=== PATIENT | female | born 1940 | race Caucasian/White ===

== ENCOUNTER 2017-09-01 04:12 | Inpatient (IN) | payer MEDICARE ==
[2017-09-01] MEDS ORDERED: Acetaminophen 500 MG TAB ONE (04:50)
[2017-09-01] MEDS ORDERED: Promethazine HCl 25 MG/ML VIAL ONE (04:50)
[2017-09-01] MEDS ORDERED: diphenhydrAMINE 50 MG/ML VIAL ONE (04:50)
[2017-09-01 05:00] LABS: #Lymphocytes 1.1 thou/uL (1.20-3.40); #Monocytes 0.5 thou/uL (0.11-0.59); #Neutrophils 10.4 thou/uL (1.40-6.50); %Basophils 0.1 % (0.0-1.0); %Eosinophils 0.3 % (0.0-10.0); %Lymphocytes 9.1 % (21.0-51.0); %Monocytes 4.2 % (0.0-10.0); %Neutrophils 86.3 % (42.0-75.0); Hemoglobin 12.9 g/dL (12.0-16.0); Mean Corpuscular HGB CONC 33.1 g/dL (32.0-36.0); Mean Corpuscular Hemoglobin 28.6 pg (27.0-31.0); Mean Corpuscular Volume 86.3 fl (81.0-99.0); Mean Platelet Volume 6.6 fL (7.4-10.4); Platelet Count 218 thou/uL (130-400)
[2017-09-01 05:19] LABS: ALT (SGPT) 11 U/L (8-55); AST (SGOT) 10 U/L (5-34); Alkaline Phosphatase 121 U/L (40-150); Anion Gap 13 mmol/L (10-20); BUN (Urea Nitrogen) 9 mg/dL (9.8-20.1); Bilirubin, Total 0.7 mg/dL (0.2-1.2); Calc. Creatinine Clearance 0 mL/min (70-130); Calcium 9.3 mg/dL (7.8-10.44); Carbon Dioxide 25 mmol/L (23-31); Chloride 104 mmol/L (98-107); Estimated GFR-MDRD 74; Globulin 3.2 g/dL (2.4-3.5); Glucose 144 mg/dL (83-110); Protein, Total 7.2 g/dL (6.0-8.3); Sodium 138 mmol/L (136-145)
[2017-09-01] MEDS ORDERED: Morphine 4 MG/ML VIAL ONE (06:11)
[2017-09-01 06:23] LABS: Bilirubin Negative (Negative); Blood, Urine Negative (Negative); Clarity CLEAR (Clear); Glucose, Urine (Dipstick) Negative (Negative); Leukocyte Negative (Negative); Nitrite Negative (Negative); Protein, Urine (Dipstick) Negative (Neg-Trace); Specific Gravity, Urine 1.004 (1.002-1.036); Urobilinogen 0.2 mg/dL (0.2-1.0); pH, Urine 7.5 (5.0-9.0)
--- NOTE | 2017-09-01 07:40 | RAD ---
SINGLE VIEW CHEST: Date: 09/01/17 COMPARISON: 10/12/09. HISTORY: Cough with multiple complaints. Dry cough, fever, and sore throat. FINDINGS: Single view of the chest shows normal size cardiomediastinal silhouette with atherosclerotic calcific ations in the aorta. There is no evidence of consolidation, mass, or pleural effusion. Degenerative c hanges are seen in the spine. IMPRESSION: 1. No evidence of acute cardiopulmonary disease. 2. Atherosclerotic disease. POS: OFF
[2017-09-01] MEDS ORDERED: HYDROcodone/Acetaminophen 5/325 mg Tablet PO PRN ×2 (07:42)
[2017-09-01] MEDS ORDERED: Ondansetron ODT 4 MG TAB SL PRN (07:42)
[2017-09-01] MEDS ORDERED: Acetaminophen 325 MG TAB PO PRN (07:42)
[2017-09-01] MEDS ORDERED: Sodium Chloride 0.9% 1,000 ML IV SCH (07:42)
[2017-09-01] MEDS ORDERED: Ondansetron HCl/PF 4 MG/2 ML Vial IVP PRN ×2 (07:42→10:30)
[2017-09-01 07:49] VITALS: BMI 28.3
--- NOTE | 2017-09-01 08:35 | CT ---
PRELIMINARY REPORT/[facility]/EMERGENTY AFTER-HOURS PROCEDURE CT Head Without Intravenous Contrast EXAM DATE/TIME: Exam ordered 09/01/2017 6:05 AM CLINICAL HISTORY: 77 years old, female; Pain; Headache; Headache not specified; Patient HX: Headache; Er 1; F77 presents to ed for multiple complaints. Pt reports body aches, headache, sore throat, fever, dry cough, runny nose, nausea, and decreased appetite TECHNIQUE: Axial computed tomography images of the head/brain without intravenous contrast. COMPARISON: No relevant prior studies available. FINDINGS: Brain: Normal. No hemorrhage. No significant white matter disease. No edema. Ventricles: Normal. No ventriculomegaly. Bones/joints: Normal. No acute fracture. Soft tissues: Normal. Sinuses: Unremarkable as visualized. No acute sinusitis. Mastoid air cells: Unremarkable as visualized. No mastoid effusion. IMPRESSION: No acute intracranial hemorrhage. Thank you for allowing us to participate in the care of your patient. Dictated and Authenticated by: Israel Mancuso MD 09/01/2017 6:17 AM Central Time ([place] & [place]) FINAL REPORT EMERGENCY AFTER HOURS STUDY CT BRAIN NONCONTRAST: DATE: 09/01/17. TIME: 6:06 a.m. HISTORY: A 77-year-old female with headache. FINDINGS: There is no midline shift or any other mass effect. There is no evidence of acute intracranial hemor rhage, large cortical infarct, obstructive hydrocephalus, or extraaxial fluid collection. The calvar ium is intact. Incidentally, there is a small old lacunar infarction involving the left caudate nucl eus, which occurred sometime after the previous CT of 10/12/09. This is a minor disagreement with the preliminary report by [facility]. There is no major disagreement. Scattered tiny hypodensities in the c alvarium are unchanged since 10/12/09, and are therefore, benign. IMPRESSION: 1. No acute intracranial findings. 2. Small old lacunar infection of the left caudate nucleus. james POS: CHARLES
[2017-09-01] MEDS ORDERED: Acetaminophen 500 MG TAB PO PRN (10:30)
[2017-09-01] MEDS ORDERED: Chloraseptic Spray 180 ml Bottle PO PRN (10:30)
[2017-09-01] MEDS ORDERED: cloNIDine 0.1 MG TAB PO PRN (10:30)
[2017-09-01] MEDS ORDERED: hydrALAZINE 20 MG/ML VIAL SLOW IVP PRN (10:30)
[2017-09-01] MEDS ORDERED: Ondansetron ODT 4 MG TAB PO PRN (10:30)
[2017-09-01] MEDS: Ketorolac Tromethamine 30 MG/ML VIAL IVP SCH ×2 (12:38→17:18)
[2017-09-01] MEDS: Sodium Chloride 0.9% 1,000 ML IV SCH ×2 (12:39→17:21)
--- NOTE | 2017-09-01 12:54 | HP ---
DATE OF ADMISSION: 09/01/2017 PRIMARY CARE PHYSICIAN: Dr. Isaac Courtney. CHIEF COMPLAINT: Bodyaches and headache. HISTORY OF PRESENT ILLNESS: This is a 77-year-old female who presents to [facility] with multiple somatic complaints including headache, body aches, sore throat, subjective fever, nausea, and decreased appetite. The patient states all symptoms began within the last 12 hours prior to evaluation in the emergency room. The patient states she called to make an ap pointment with her primary care provider's office; however, felt like her symptoms progressed and pre sented to the emergency room. The patient states she took Nyquil for some relief at approximately 20 :00 on 08/31/2017 without relief of her symptoms. The patient denies any family members with similar symptoms, travel history, sick contact exposure, recent vaccinations, skin rashes or recent antibiot ic prescription. The patient states she normally is fairly active and does not typically get ill. [facility] patient admits to some sore throat with mild postnasal drainage and dry cough, diminished appetite and nausea. The patient denies any diarrhea, hematemesis, recent trauma, injury or falls. The rubén ent denied any specific visual disturbance, but does state throbbing headache behind both eyes. In [facility] emergency room, the patient underwent general evaluation to include CT of the brain showing no acu te process. Portable chest x-ray also showed no acute infiltrates. The patient received multiple me dications in the emergency room including Levaquin, morphine, Phenergan, Benadryl, normal saline and Tylenol. The patient was referred to the Hospitalist Service for evaluation. PAST MEDICAL HISTORY: 1. Hypertension. 2. Hyperlipidemia. PAST SURGICAL HISTORY: 1. Status post cataract removal. 2. Status post bilateral tubal ligation. CURRENT MEDICATIONS: 1. Carvedilol 6.25 mg p.o. b.i.d. 2. Lisinopril 10 mg one tab p.o. daily. 3. Simvastatin 40 mg p.o. at bedtime. ALLERGIES: PENICILLIN. FAMILY HISTORY: No inheritable diseases per patient report. SOCIAL HISTORY: Patient is and resides in [place], [place]. Retired. No current alcohol, to bacco or illicit drug use. Functional of all activities of daily living. REVIEW OF SYSTEMS: The following complete review of systems was negative, unless otherwise mentioned in the HPI or below: Constitutional: Weight loss or gain, ability to conduct usual activities. Skin: Rash, itching. Eyes: Double vision, pain. ENT/Mouth: Nose bleeding, neck stiffness, pain, tenderness. Cardiovascular: Palpitations, dyspnea on exertion, orthopnea. Respiratory: Shortness of breath, wheezing, cough, hemoptysis, fever or night sweats. Gastrointestinal: Poor appetite, abdominal pain, heartburn, nausea, vomiting, constipation, or diarr hea. Genitourinary: Urgency, frequency, dysuria, nocturia. Musculoskeletal: Pain, swelling. Neurologic/Psychiatric: Anxiety, depression. Allergy/Immunologic: Skin rash, bleeding tendency. Otherwise negative except as stated per HPI. PHYSICAL EXAMINATION: VITAL SIGNS: Currently, blood pressure 151/74, pulse 89, respiratory rate 18, temperature 97.6 degre es Fahrenheit, O2 saturation is 96% on room air. GENERAL APPEARANCE: This is a 77-year-old female, alert and oriented x3, pleasant, in no a cute distress. HEENT: Pupils are equal, round, and reactive to light and accommodation. Extraocular muscles are in tact. No scleral icterus, no conjunctival injection. Nares patent. OP is clear. No tonsillar exud ate appreciated. NECK: Supple, no cervical adenopathy, no thyromegaly, no carotid bruits, no JVD appreciated. Cervic al spine is with full active and passive range of motion. No meningeal signs appreciated. CHEST: Lungs are clear to auscultation bilaterally. No wheezing or rhonchi. CARDIOVASCULAR: S1 and S2 without noted murmur or gallop. ABDOMEN: Rounded, soft, nontender, nondistended. Bowel sounds are positive in all four quadrants. There is no hepatosplenomegaly, no abdominal bruits, no rebound or guarding appreciated. EXTREMITIES: Warm and dry with fair turgor. No clubbing, cyanosis or asymmetric edema appreciated. Pulses palpable distally at the dorsalis pedis, posterior tibial, and popliteal arteries bilaterally . Capillary refill is less than 2 seconds. NEUROLOGIC: Cranial nerves II-XII are grossly intact. No focal or lateralizing signs appreciated. PERTINENT LABORATORY DATA AND IMAGING DATA: Complete metabolic profile within normal limits. CBC sh owed white blood cell count of 12.0, hemoglobin 13, hematocrit 39, platelet count 218 with 86% neutro phils. Urinalysis negative on 09/01/2017. Influenza A and B antigen on 09/01/[address] of the brain without contrast dated 09/01/2017 showed no acute intracranial process. Portable chest x-r ay dated 09/01/2017 showed no acute cardiopulmonary process. EKG dated 09/01/2017 by my interpretati on shows sinus mechanism with heart rate in the 80s. Normal R-wave progression noted in the precordi al leads. Normal axis. No acute ST-T wave changes appreciated. ASSESSMENT AND PLAN: 1. Viral syndrome. The patient will be observed on the medical floor. We will continue supportive measures. Intravenous normal saline at 75 mL per hour. Toradol 30 mg IV every 6 hours p.r.n. 2. Headache. Suspect secondarily to #1 with tension type components. Continue IV fluids as outline d previously. Toradol 30 mg IV q.6 hours p.r.n., Tylenol 1000 mg p.o. every 6 hours p.r.n. 3. Neutrophilic leukocytosis. Suspect secondary to #1. Repeat CBC in the a.m. Continue general odom pportive measures. 4. Hypertension. Resume home regimen to include carvedilol and lisinopril. Serial blood pressure m onitoring. 5. Prophylaxis. Sequential compression devices while in bed. Pepcid 20 mg p.o. b.i.d. 6. Code status is FULL. Surrogate medical decision maker is patient's spouse.
[2017-09-01] MEDS: Carvedilol 6.25 MG TAB PO SCH (21:49)
[2017-09-01] MEDS: Famotidine 20 MG TAB PO SCH (21:49)
[2017-09-02] MEDS: Ketorolac Tromethamine 30 MG/ML VIAL IVP SCH ×3 (00:08→13:01)
[2017-09-02 05:37] LABS: Band 1 % (5-11); Eosinophils 2 % (0-10); Hemoglobin 10.7 g/dL (12.0-16.0); Lymphocytes 33 % (21-51); MDiff Complete? YES; Mean Corpuscular HGB CONC 32.9 g/dL (32.0-36.0); Mean Corpuscular Volume 88.1 fl (81.0-99.0); Mean Platelet Volume 7.3 fL (7.4-10.4); Monocytes 5 % (0-10); Neutrophil 59 % (42-75); PLT Morphology Comment Appears Adequate; Platelet Count 182 thou/uL (130-400); RBC Distribution Width 12.1 % (11.5-14.5)
[2017-09-02] MEDS: Carvedilol 6.25 MG TAB PO SCH (08:14)
[2017-09-02] MEDS: Famotidine 20 MG TAB PO SCH (08:14)
[2017-09-02] MEDS: Sodium Chloride 0.9% 1,000 ML IV SCH (08:16)
[2017-09-02] MEDS ORDERED: Lisinopril 10 MG TAB PO SCH (09:00)
[2017-09-02 11:29] VITALS: BP 112/59; TEMP 98.5
--- NOTE | 2017-09-02 16:29 | PDOC.EVN ---
Event Note - Event Note Event Note: LATE ENTRY The patient's chart was reviewed on 09/01/2017 for the purposes of Utilization review. The patient's acuity of care does not meet the level of In-patient status. Therefore under the Medicare Provision Code 44, the patient's status was changed to Observation The patient's Attending Physician was contacted and agreed.
--- NOTE | 2017-09-02 20:42 | DIS ---
DATE OF ADMISSION: 09/01/2017 DATE OF DISCHARGE: 09/02/2017 DISCHARGE DIAGNOSES: 1. Viral syndrome, improved. 2. Headache secondary to #1, improved. 3. Neutrophilic leukocytosis, resolved. 4. Hypertension, stable. CONSULTATIONS: None. PERTINENT LABORATORY DATA AND X-RAY FINDINGS: Complete metabolic profile within normal limits. CBC showed a white blood cell count ranging between 8.0 to 12.0. Blood cultures x2 from 09/01/2017 showe d no growth to date. Influenza A and B antigen dated 09/01/[address] of the brain without c ontrast dated 09/01/2017 showed no acute intracranial process. Portable chest x-ray dated 09/01/2017 showed no acute cardiopulmonary process. HOSPITAL COURSE: Patient was observed on the medical floor after initially presenting with headache, body aches, and questionable fever. Patient underwent extensive evaluation including screening meta bolic survey as well as chest imaging showing no acute focal process. Patient was initially diagnose d with questionable pneumonia in the emergency department and received IV Levaquin x1 dose. Patient also received antiemetics and intravenous fluids. Review of the chest imaging showed no specific matt dence of acute infiltrate and radiologist overread showed no evidence of an acute infectious process. Patient was given general supportive measures including IV fluids, anti-inflammatory medication, an d supportive care. Patient overall remained clinically stable throughout the hospital course without evidence of documented fever. Metabolic screening was unremarkable, and patient clinically improved with supportive care. I have examined the patient at the time of discharge and discuss radiological findings, laboratory studies, discharge and follow up instructions. At which point, patient has burt balized understanding and agreement for discharge. Patient is overall stable and ready for discharge on 09/02/2017. DISCHARGE MEDICATIONS: 1. Carvedilol 6.25 mg p.o. b.i.d. 2. Lisinopril 10 mg p.o. daily. 3. Simvastatin 40 mg p.o. at bedtime. FOLLOWUP: Patient will follow up with Dr. Isaac Courtney within 7 days of discharge. CONDITION ON DISCHARGE: Stable. ACTIVITY: Ad-chantal. DIET: Regular. CODE STATUS: FULL. DISPOSITION: Home on 09/02/2017.
== END 2017-09-02 17:14 | disposition home or self-care (01) | DRG 866 ==
LOC: ERS 04:12 → T4-A 07:34
PROVIDERS: ADMIT Internal Medicine; ATTEND Internal Medicine
DX: B34.9 Viral infection, unspecified (principal); D72.0 Genetic anomalies of leukocytes; R51 Headache; I10 Essential (primary) hypertension; E78.5 Hyperlipidemia, unspecified
CPT/HCPCS: 36415; 70450; 71045; 80053; 81003; 85007; 85025; 85027; 87040; 87804; 93005; 96361; 96365; 96375; A4216; J1200; J1885; J1956; J2270; J2550

== ENCOUNTER 2017-09-04 09:32 | Inpatient (IN) | payer MEDICARE ==
[2017-09-04 12:50] LABS: Troponin I Less than 0.010 ng/mL (< 0.028)
[2017-09-04] MEDS ORDERED: Acetaminophen 325 MG TAB PO PRN (13:56)
[2017-09-04] MEDS ORDERED: HYDROcodone/Acetaminophen 7.5/325 mg Tablet PO PRN (13:56)
[2017-09-04] MEDS ORDERED: Ondansetron ODT 4 MG TAB PO PRN (13:56)
[2017-09-04] MEDS: Furosemide 40 MG/4 ML VIAL SLOW IVP SCH (14:39)
[2017-09-04 15:44] LABS: Troponin I Less than 0.010 ng/mL (< 0.028)
--- NOTE | 2017-09-04 15:45 | HP ---
DATE OF ADMISSION: 09/04/2017 CHIEF COMPLAINT: Shortness of breath. HISTORY OF PRESENT ILLNESS: This is a 77-year-old elderly white female. She is living by herself in [facility] and also taking care of her mentally retarded child at home and she is otherwise in good health. For the past few weeks, she is noticing that she is nauseated and she is not eating well and she is losing weight. She has noticed that she was also having some cough, congestion and shortness of breath which is progressively getting worse to the point today that she was not able to walk any few steps at home and she is feeling like chest discomfort with as if somebody sitting on her chest. She says she decided to go to a nearby ER at [place] and she had chest x-ray showing evidence of bi lateral pleural effusions and elevated BNP. The patient was diagnosed with CHF and was transferred t o [facility]. When patient arrived to the ER, she was hypoxic at 87%-88% and was started on nasal cannula and also added Lasix 40 mg. The patient had elevated BNP and also history of congestive hea rt failure. The patient has a history of hypertension which is according to her is well controlled, but otherwise is in good health. There are no other medical issues. The patient denies having any s ick contacts. Denies having any cough and cold. No history of any abdominal pain. No history of he adache, no history of dizziness. No history of joint pains. PAST MEDICAL HISTORY: Hypertension. PAST SURGICAL HISTORY: None. SOCIAL HISTORY: Patient is a not a nonsmoker. No history of alcohol, no history of illicit drug use . She lives independently, takes care of her son. FAMILY HISTORY: No significant family history of coronary artery disease, but her mother did had his tory of CHF and at the age of 80. REVIEW OF SYSTEMS: All 12 systems are reviewed with the patient thoroughly and found to be negative at this time. The following complete review of systems was negative, unless otherwise mentioned in the HPI or below : Constitutional: Weight loss or gain, sense of well-being, ability to conduct usual activities, exerc ise tolerance. Skin/Breast: Rash, itching, changes in hair growth or loss, nail changes, breast lumps, tenderness, swelling, nipple discharge. Eyes: Vision, double vision, tearing, blind spots, pain. ENT/Mouth: Headaches (location, time of onset, duration, precipitating factors), vertigo, lightheade dness, injury. Vision, double vision, tearing, blind spots, pain, nose bleeding, colds, obstruction, discharge, dental difficulties, gingival bleeding, dentures, neck stiffness, pain, tenderness, masses in thyroid or other areas Cardiovascular: Precordial pain, substernal distress, palpitations, syncope, dyspnea on exertion, or thopnea, nocturnal paroxysmal dyspnea, edema, cyanosis, hypertension, heart murmurs, varicosities, ph lebitis, claudication. Respiratory: Pain, shortness of breath, wheezing, stridor, cough, hemoptysis, fever or night sweats Gastrointestinal: Poor appetite, dysphagia, indigestion, abdominal pain, heartburn, eructation, naus ea, vomiting, hematemesis, jaundice, constipation, or diarrhea, abnormal stools (demundo-colored, tarry, bloody, greasy, foul smelling), flatulence, hemorrhoids, recent changes in bowel habits. Genitourinary: Urgency, frequency, dysuria, nocturia, hematuria, polyuria, oliguria, unusual (or larry nge in) color of urine, stones, hesitancy, change in size of stream, dribbling, acute retention or in continence, libido, potency. Musculoskeletal: Pain, swelling, redness or heat of muscles or joints, limitation, of motion, muscul ar weakness, atrophy, cramps. Neurologic/Psychiatric: Convulsions, paralyses, tremor, incoordination, paraesthesias, difficulties with memory of speech, sensory or motor disturbances, or muscular coordination (ataxia, tremor), emot ional problems, anxiety, depression, previous psychiatric care, unusual perceptions, hallucinations. Allergy/Immunologic: Skin rash, anemia, bleeding tendency, polydipsia, polyuria, intolerance to heat or cold. ALLERGIES: PENICILLIN allergy. HOME MEDICATIONS: Coreg 6.25 mg p.o. b.i.d., lisinopril 10 mg p.o. daily, and simvastatin 40 mg p.o. daily. PHYSICAL EXAMINATION: VITAL SIGNS: Blood pressure 187/86, heart rate of 74, respiratory rate 16, saturation 98%. GENERAL: The patient is moderately built and moderately nourished. She does not appear to be in acu te distress at this time. She is alert and oriented x3. HEENT: Atraumatic, normocephalic. PERRLA. Extraocular movements were intact. Oral mucosa is pink and moist. CARDIOVASCULAR: S1, S2 normal. No murmurs, no rubs or gallops. LUNGS: Bilateral air entry was equal. No wheezing, no crackles. ABDOMEN: Soft and nontender. No guarding or rebound tenderness. Normal bowel sounds are normal. MUSCULOSKELETAL: No calf tenderness. No pedal edema. No joint tenderness. No joint swelling. SKIN: No cyanosis, no erythema, no rash, no pallor. NEUROLOGIC: Cranial nerve examination II-XII intact. No focal deficits are noted. PSYCHIATRIC: No signs of suicidal ideation. No signs of alex. No signs of agitation. NECK: No thyromegaly, no JVD or lymphadenopathy was noted. LABORATORY DATA: WBC 9.6, hemoglobin 11.2, hematocrit 32.4, platelets is 229, sodium 139, potassium 3.7, chloride 105, bicarbonate is 23, BUN 10, creatinine 0.6, blood sugar 120. AST normal, ALT gui l, troponin 0.010. BNP 388. UA showed no evidence of UTI at this time. ASSESSMENT AND PLAN: 1. Acute congestive heart failure. 2. Acute chest pain, rule out coronary artery disease. 3. Hypertension poorly controlled. 4. Anemia of chronic disease. 5. Anemia, likely iron deficiency. PLAN: 1. Plan is to start the patient on Lasix. We will continue with 40 mg IV b.i.d. and we will closely monitor and repeat the BNP in the morning. I will do 2D echo to look for any evidence of wall motio n abnormality or any evidence of low ejection fraction. Low ejection fraction contributing to her sy mptoms of satiety, nausea and weight loss. 2. We will continue this patient on TONG inhibitor and add spironolactone. We will optimize blood p ressures to keep the blood pressure less than 135/85. 3. The patient mentioned about chest tightness, heaviness and exertional dyspnea. Need to rule out any evidence of coronary artery disease. We will do a nuclear stress test on Tuesday once her symptom s are resolved. 4. We will consult Cardiology if needed during the time. 5. Patient has anemia likely from poor nutrition. Will check the iron levels at this time. 6. DVT prophylaxis with Lovenox 40 mg subcu daily.
[2017-09-04] MEDS: Carvedilol 3.125 MG TAB PO SCH (16:42)
[2017-09-04 18:42] LABS: Troponin I Less than 0.010 ng/mL (< 0.028)
[2017-09-04] MEDS ORDERED: Potassium Chloride 20 MEQ TAB PO SCH (18:45)
[2017-09-04] MEDS ORDERED: Spironolactone 25 MG TAB PO SCH (19:00)
[2017-09-04] MEDS: Atorvastatin Calcium 20 MG TAB PO SCH (21:13)
[2017-09-04] MEDS: Docusate 100 MG CAP PO SCH (21:13)
--- NOTE | 2017-09-04 21:22 | CON ---
DATE OF CONSULTATION: 09/04/2017 REASON FOR CONSULTATION: Shortness of breath; found to have diastolic congestive heart failure, newl y diagnosed. HISTORY OF PRESENT ILLNESS: Ms. Valerio is a very pleasant 77-year-old woman. She went to the emerge ncy room complaining of shortness of breath. She said for at least several weeks if not longer, she has been short of breath and could not lay down flat. Her breathing got a lot worse and it felt like even there was a pressure in her chest. She went to the emergency room in [place]. She was found to be in congestive heart failure. She was given furosemide. She was hypoxic. Her oxygen level was 87% to 88%, but she had excellent response to the Lasix and she began feeling better. The tightness in her chest resolved and feels much better presently. No chest pain or pressure currently. Chest x-ray also showed some bilateral pleural effusions and elevated BNP. PAST MEDICAL HISTORY: Hypertension. PAST SURGICAL HISTORY: None. SOCIAL HISTORY: Nonsmoker. No alcohol. FAMILY HISTORY: No coronary disease at a young age. Mother of heart failure at age 80. REVIEW OF SYSTEMS: Constitutional: No significant weight gain or loss. Vision: No changes. Heari ng: No changes. Pulmonary: Positive for shortness of breath. Cardiac: Positive for shortness of breath and chest pressure, resolved with Lasix. Abdomen: Soft, nontender. Gastrointestinal: No na usea, vomiting, diarrhea. Skin: No rashes. PHYSICAL EXAMINATION: GENERAL: She is a delightful elderly woman. VITAL SIGNS: Her blood pressure is still high at 168/77; pulse 74, it is regular. EYES: Sclerae are nonicteric. Mouth, mucous membranes moist. NECK: Supple. No lymphadenopathy. LUNGS: Currently, clear. No wheezing, rales, or rhonchi. CARDIOVASCULAR: Normal S1, normal S2. There is no murmur, rub, or gallop. ABDOMEN: Soft, nontender. EXTREMITIES: No clubbing, no cyanosis, no edema. Peripheral pulses got strong, posterior tibial and dorsalis pedis pulses bilaterally. PERTINENT LABORATORY AND X-RAY FINDINGS: Hemoglobin was 11.2. Potassium was 3.7 this morning. Echocardiogram shows she has normal left ventricular function with some left ventricular hypertrophy, concentric; also some diastolic dysfunction. EKG, there were no acute changes. Initially, she had sinus rhythm, rate of 93 with otherwise normal EKG. ASSESSMENT: 1. Diastolic congestive heart failure, acute, probably on chronic. 2. History of hypertension. PLAN: 1. Agree with spironolactone. 2. Agree with TONG inhibitors. 3. We will replete potassium. 4. Discussed cardiac catheterization. She prefers not to do that. We will start with stress testin g and if it is completely normal, then may well be able to avoid the cardiac catheterization. Kush mead, doing well. Oxygen saturations are now 100% on room air.
[2017-09-04] MEDS ORDERED: Temazepam 15 MG CAP PO SCH (23:15)
[2017-09-05 05:13] LABS: #Eosinphils 0.2 thou/uL (0.0-0.7); #Lymphocytes 1.9 thou/uL (1.20-3.40); #Monocytes 0.7 thou/uL (0.11-0.59); #Neutrophils 4.3 thou/uL (1.40-6.50); %Basophils 0.7 % (0.0-1.0); %Eosinophils 3.2 % (0.0-10.0); %Lymphocytes 26.3 % (21.0-51.0); %Monocytes 9.8 % (0.0-10.0); %Neutrophils 60.1 % (42.0-75.0); Hemoglobin 12.1 g/dL (12.0-16.0); Mean Corpuscular HGB CONC 34.4 g/dL (32.0-36.0); Mean Corpuscular Hemoglobin 29.5 pg (27.0-31.0); Mean Corpuscular Volume 85.9 fl (81.0-99.0); Mean Platelet Volume 6.5 fL (7.4-10.4); Platelet Count 244 thou/uL (130-400); RBC Distribution Width 11.8 % (11.5-14.5); White Blood Cell (WBC) Count 7.2 thou/uL (4.8-10.8)
[2017-09-05] MEDS: Furosemide 40 MG/4 ML VIAL SLOW IVP SCH ×2 (05:21→16:32)
[2017-09-05 05:28] LABS: Anion Gap 12 mmol/L (10-20); BUN (Urea Nitrogen) 12 mg/dL (9.8-20.1); Calc. Creatinine Clearance 76 mL/min (70-130); Calcium 9.7 mg/dL (7.8-10.44); Carbon Dioxide 30 mmol/L (23-31); Chloride 100 mmol/L (98-107); Estimated GFR-MDRD 81; Glucose 105 mg/dL (83-110); Iron 32 ug/dL (50-170); Iron 34 ug/dL (50-170); Iron Binding Capacity, Total 234 mcg/dL (265-497); Potassium 3.5 mmol/L (3.5-5.1); Sodium 138 mmol/L (136-145)
--- NOTE | 2017-09-05 08:16 | RAD ---
UPRIGHT PORTABLE CHEST: HISTORY: A 77-year-old female with a history of congestive heart failure. FINDINGS: Increased markings in the left base, but this appears stable from prior studies dating back to 09/01. No confluent pneumonia, overt edema, or pleural effusion or other acute process. IMPRESSION: Stable increased markings, particularly in the left base. POS: OFF
[2017-09-05] MEDS ORDERED: Lisinopril 2.5 MG TAB PO SCH ×2 (09:00)
[2017-09-05] MEDS ORDERED: Aspirin 325 MG TAB PO SCH ×2 (09:00)
[2017-09-05 09:02] VITALS: BMI 27.8
[2017-09-05] MEDS ORDERED: ADENOSINE 60 MG/20 ML VIAL ONE (09:50)
--- NOTE | 2017-09-05 11:20 | PDOC.PN ---
- Subjective Encounter Start Date: 09/05/17 Encounter Start Time: 09:45 Subjective: no chest pain or sob -: is waiting for stress test - Objective Resuscitation Status: Resuscitation Status FULL:Full Resuscitation MAR Reviewed: Yes Vital Signs & Weight: Vital Signs (12 hours) Temp Pulse Resp BP Pulse Ox 09/05/17 04:00 98.1 F 74 18 158/74 H 93 L 09/05/17 00:00 97.6 F Weight Admit Weight 154 lb 4.8 oz Weight 156 lb 12.8 oz I&O: 09/04/17 09/05/17 09/06/17 06:59 06:59 06:59 Intake Total 440 Output Total 1900 Balance -1460 Result Diagrams: 09/05/17 04:55 09/05/17 04:55 Phys Exam - Physical Examination HEENT: PERRLA, moist MMs Neck: no JVD, supple Respiratory: no wheezing, no rales Cardiovascular: RRR, no significant murmur Gastrointestinal: soft, non-tender, positive bowel sounds Musculoskeletal: no edema, pulses present Neurological: non-focal, moves all 4 limbs Psychiatric: A&O x 3 Dx/Plan (1) Acute exacerbation of CHF (congestive heart failure) Code(s): I50.9 - HEART FAILURE, UNSPECIFIED Status: Acute Qualifiers: Heart failure type: diastolic Qualified Code(s): I50.33 - Acute on chronic diastolic (congestive) heart failure Comment: ef of 55% (2) HTN (hypertension) Code(s): I10 - ESSENTIAL (PRIMARY) HYPERTENSION Status: Chronic Qualifiers: Hypertension type: essential hypertension Qualified Code(s): I10 - Essential (primary) hypertension (3) Dyslipidemia Code(s): E78.5 - HYPERLIPIDEMIA, UNSPECIFIED Status: Chronic (4) Chest pain Code(s): R07.9 - CHEST PAIN, UNSPECIFIED Status: Acute Qualifiers: Chest pain type: unspecified Qualified Code(s): R07.9 - Chest pain, unspecified - Plan await stress test results -: had temp of 100 last night?, cxr no infiltrate, will get UA -: is on asp, lipitor, coreg and gentle diuresis with iv lasix q12h -: may switch to oral lasix qd if ok with cardio -: to amb as tolerated * . Review of Systems - Medications/Allergies Allergies/Adverse Reactions: Allergies Allergy/AdvReac Type Severity Reaction Status Date / Time Penicillins Allergy Rash Verified 09/01/17 07:43 Medications: Current Medications Acetaminophen (Tylenol) 650 mg PO Q4H PRN PRN Reason: Headache/Fever or Pain Last Admin: 09/04/17 21:20 Dose: 650 mg Hydrocodone Bitart/Acetaminophen ([place] 7.5/325) 1 tab PO Q4H PRN PRN Reason: Moderate Pain (4-6) Aspirin (Aspirin Chewable) 81 mg PO DAILY [facility] Atorvastatin Calcium (Lipitor) 20 mg PO HS [facility] Last Admin: 09/04/17 21:13 Dose: 20 mg [facility] ([facility] Last Admin: 09/04/17 16:42 Dose: 3.125 mg Docusate Sodium (Colace) 100 mg PO BID [facility] Last Admin: 09/04/17 21:13 Dose: 100 mg Enoxaparin Sodium (Lovenox) 40 mg SC 0900 [facility] Famotidine (Pepcid) 20 mg PO DAILY [facility] Furosemide (Lasix) 40 mg SLOW IVP 0600,1400 [facility] Last Admin: 09/05/17 05:21 Dose: 40 mg Lisinopril (Zestril) 10 mg PO DAILY [facility] Ondansetron HCl (Zofran Odt) 4 mg PO Q6H PRN PRN Reason: Nausea/Vomiting Sodium Chloride (Flush - Normal Saline) 10 ml IVF Q12HR [facility] Last Admin: 09/04/17 21:13 Dose: 10 ml Sodium Chloride (Flush - Normal Saline) 10 ml IVF PRN PRN PRN Reason: Saline Flush Spironolactone (Aldactone) 25 mg PO QAM[facility]
[2017-09-05] MEDS: Enoxaparin Sodium 40 MG/0.4 ML SYRINGE SC SCH (11:23)
[2017-09-05] MEDS: Docusate 100 MG CAP PO SCH ×2 (11:24→22:04)
[2017-09-05] MEDS: Famotidine 20 MG TAB PO SCH (11:24)
[2017-09-05] MEDS: Spironolactone 25 MG TAB PO SCH (11:25)
[2017-09-05] MEDS: Carvedilol 3.125 MG TAB PO SCH ×2 (11:25→16:36)
--- NOTE | 2017-09-05 13:05 | NM ---
MYOCARDIAL PERFUSION STUDY: DATE: 09/05/17. HISTORY: Chest heaviness. Chest pain. RADIOPHARMACEUTICALS: 33 mCi Technetium 99m sestamibi, IV at stress, and 10.5 mCi Technetium 99m sestamibi, IV at rest. MEDICATIONS: 39.2 mg (13.1 mL) adenosine, IV. FINDINGS: No significant reversible defect is seen between the stress and resting acquisitions. Gated images s how normal ventricular wall motion and wall thickening. The calculated left ventricular ejection fra ction is 87%. IMPRESSION: 1. Normal myocardial perfusion study without evidence of a reversible defect seen to suggest ischemi a. 2. Normal left ventricular ejection fraction of 87%. POS: XIOMARA
[2017-09-05] MEDS ORDERED: Lisinopril 10 MG TAB PO SCH (15:00)
--- NOTE | 2017-09-05 18:06 | PRG ---
DATE OF SERVICE: 09/05/2017 SUBJECTIVE: Ms. Valerio is doing well. She underwent stress testing today, which was normal. OBJECTIVE: VITAL SIGNS: Her blood pressure was earlier 159/72 then 130/63, pulse 78. LUNGS: Clear. CARDIAC: Normal S1, normal S2. ABDOMEN: Soft, nontender. EXTREMITIES: No edema. ASSESSMENT: 1. Diastolic congestive heart failure, improved. BNP actually went from 388 to 109.8 in one day. 2. Stress induced ischemia with normal ejection fraction on nuclear scanning. The patient does not wish to have cardiac catheterization. PLAN: 1. Okay with me to go home tomorrow. 2. She is currently on atorvastatin 20 mg a day, aspirin 81 mg a day, furosemide 40 mg each morning, lisinopril 10 mg a day. 3. Spironolactone 25 mg a day, potassium level should be checked within 2 weeks.
[2017-09-05] MEDS: Atorvastatin Calcium 20 MG TAB PO SCH (22:05)
[2017-09-06 05:33] LABS: Anion Gap 9 mmol/L (10-20); BUN (Urea Nitrogen) 19 mg/dL (9.8-20.1); Calc. Creatinine Clearance 74 mL/min (70-130); Calcium 9.4 mg/dL (7.8-10.44); Carbon Dioxide 32 mmol/L (23-31); Chloride 100 mmol/L (98-107); Estimated GFR-MDRD 78; Glucose 114 mg/dL (83-110); Potassium 3.5 mmol/L (3.5-5.1); Sodium 137 mmol/L (136-145)
[2017-09-06] MEDS ORDERED: Furosemide 40 MG TAB PO SCH (07:30)
[2017-09-06] MEDS: Spironolactone 25 MG TAB PO SCH (08:09)
[2017-09-06] MEDS: Carvedilol 3.125 MG TAB PO SCH (08:09)
[2017-09-06] MEDS: Famotidine 20 MG TAB PO SCH (08:09)
[2017-09-06] MEDS: Enoxaparin Sodium 40 MG/0.4 ML SYRINGE SC SCH (08:10)
[2017-09-06] MEDS ORDERED: Lisinopril 10 MG TAB PO SCH ×3 (09:00→11:00)
[2017-09-06] MEDS ORDERED: Carvedilol 3.125 MG TAB PO SCH ×2 (09:12→11:00)
[2017-09-06] MEDS ORDERED: Lisinopril 20 MG TAB PO SCH (10:00)
[2017-09-06] MEDS ORDERED: Carvedilol 6.25 MG TAB PO SCH ×2 (10:00→17:00)
[2017-09-06] MEDS: Docusate 100 MG CAP PO SCH (10:08)
--- NOTE | 2017-09-06 10:58 | PDOC.PN ---
- Subjective Encounter Start Date: 09/06/17 Encounter Start Time: 08:00 Subjective: no sob or palp or chest pain -: is amb and feels good - Objective Resuscitation Status: Resuscitation Status FULL:Full Resuscitation MAR Reviewed: Yes Vital Signs & Weight: Vital Signs (12 hours) Temp Pulse Resp BP BP Pulse Ox 09/06/17 08:09 131/63 09/06/17 08:03 98.8 F 76 14 138/69 95 09/06/17 04:00 98.2 F 74 16 140/65 94 L Weight Admit Weight 154 lb 4.8 oz Weight 154 lb 8 oz I&O: 09/05/17 09/06/17 09/07/17 06:59 06:59 06:59 Intake Total 440 1200 100 Output Total 1900 1300 350 Balance -1460 -100 -250 Result Diagrams: 09/05/17 04:55 09/06/17 04:48 Phys Exam - Physical Examination HEENT: PERRLA, moist MMs Neck: no JVD, supple Respiratory: no wheezing, no rales Cardiovascular: RRR, no significant murmur Gastrointestinal: soft, non-tender, positive bowel sounds Musculoskeletal: no edema, pulses present Neurological: non-focal, moves all 4 limbs Psychiatric: normal affect, A&O x 3 Dx/Plan (1) Acute exacerbation of CHF (congestive heart failure) Code(s): I50.9 - HEART FAILURE, UNSPECIFIED Status: Resolved Qualifiers: Heart failure type: diastolic Qualified Code(s): I50.33 - Acute on chronic diastolic (congestive) heart failure Comment: ef of 55%, class B (2) HTN (hypertension) Code(s): I10 - ESSENTIAL (PRIMARY) HYPERTENSION Status: Chronic Qualifiers: Hypertension type: essential hypertension Qualified Code(s): I10 - Essential (primary) hypertension (3) Dyslipidemia Code(s): E78.5 - HYPERLIPIDEMIA, UNSPECIFIED Status: Chronic (4) Chest pain Code(s): R07.9 - CHEST PAIN, UNSPECIFIED Status: Acute Qualifiers: Chest pain type: unspecified Qualified Code(s): R07.9 - Chest pain, unspecified - Plan stress test was -ve -: has diuresed well -: is cleared for dc by -: dc pt home -: to continue asp, zocor, coreg, lasix * .
[2017-09-06 13:42] VITALS: BP 140/68; TEMP 98.6
--- NOTE | 2017-09-06 14:53 | DIS ---
DATE OF ADMISSION: 09/04/2017 DATE OF DISCHARGE: 09/06/2017 DISCHARGE DISPOSITION: To home. PRIMARY DISCHARGE DIAGNOSES: Chest pain which is noncardiac, acute congestive heart failure exacerba tion with diastolic dysfunction class C. SECONDARY DISCHARGE DIAGNOSES: Hypertension and dyslipidemia. PROCEDURES DONE DURING HOSPITALIZATION: Patient has had nuclear stress test done which showed no matt dence of reversible ischemia or fixed defect, EF was 87%. Echo with 2D Doppler showed an ejection fr action of 55%-60%. There was E/A flow reversal suggestive of diastolic dysfunction, mild concentric LVH was seen. Chest x-ray done showed pulmonary vascular congestion. No obvious lobar consolidation was seen. Hemoglobin and hematocrit 12 and 35, platelet count 244. Discharge BUN and creatinine is 19 and 0.7, serum iron level was 34, ferritin is 414, troponin x3 was negative. BNP on admission wa s 388.5. DISCHARGE MEDICATIONS: Aspirin 81 mg p.o. daily, Coreg 3.125 mg p.o. twice daily, Lasix 40 mg p.o. d aily, lisinopril 10 mg p.o. daily, simvastatin 40 mg p.o. q.p.m., spironolactone 25 mg p.o. q.a.m. ALLERGIES: PENICILLIN. INPATIENT CONSULT: Dr. Tejada for Cardiology. DISCHARGE PLAN: Patient to follow up with primary care physician in [address] [facility] BRIEF COURSE DURING HOSPITALIZATION: Patient initially got admitted on with complaints of chest pain and shortness of breath. She was found to have had elevated BNP and was hypoxic with saturatio ns of 87% on room air on arrival. The patient was gently diuresed during her stay here. Her ejectio n fraction was within normal limits and had diastolic dysfunction on the echo. The patient has had c onsultation with Dr. Tejada for Cardiology. She has had nuclear stress test done which showed no matt dence of reversible ischemia. Prior to discharge, she is ambulating and eating well. She is asympto matic at the time of discharge. She has been optimized on medications and needs to follow up with Dr Unique Tejada in 2-4 weeks. Please see a face to face documentation on [facility] for the day of discharge.
[2017-09-07] MEDS ORDERED: Lisinopril 10 MG TAB PO SCH (09:00)
== END 2017-09-06 13:45 | disposition home or self-care (01) | DRG 293 ==
LOC: ERS 09:32 → 2NO 13:37
PROVIDERS: ADMIT Family Medicine; ATTEND Family Medicine
DX: I11.0 Hypertensive heart disease with heart failure (principal); E87.5 Hyperkalemia; D50.9 Iron deficiency anemia, unspecified; R07.9 Chest pain, unspecified; I50.33 Acute on chronic diastolic (congestive) heart failure
CPT/HCPCS: 36415; 71045; 78452; 80048; 82728; 83540; 83550; 83880; 85025; 93005; 93017; 93306; 93798; A4216; A9500; G8978-GP-CJ; G8979-GP-CJ; G8980-GP-CJ; G8987-GO-CH; G8988-GO-CH; G8989-GO-CH; J0153; J1650; J1940

== ENCOUNTER 2018-02-01 08:51 | Observation (INO) | payer MEDICARE, OTHER ==
[2018-02-01] MEDS ORDERED: ISOVUE-370 76%-LOCM 1 ML ONE (10:12)
--- NOTE | 2018-02-01 10:24 | CT ---
CT ANGIOGRAM CHEST WITH CONTRAST: HISTORY: Chest pain. Elevated D-dimer. COMPARISON: Chest radiograph from the same day. TECHNIQUE: CT angiogram chest performed after the intravenous administration of contrast, with 3D rendering prov ided. FINDINGS: A 15 mm nodule in the left lobe of the thyroid. No proximal segmental pulmonary arterial filling def ect. No dilatation of the pulmonary trunk. No pericardial effusion. The aortic size is nonaneurysmal. The upper abdomen demonstrates hypodensities of the liver, less li alisa cyst, although incompletely evaluated. No mediastinal adenopathy. No focal confluent air space consolidation, pneumothorax, or effusion. T here is a focal area of round atelectasis in the lingula, most likely a nodule. There is a nodular density in the left breast, incompletely evaluated. IMPRESSION: 1. No proximal or segmental pulmonary arterial filling defect. 2. Likely focal area of round atelectasis in the lingula, most likely a nodule. Follow-up CT chest in three months is recommended. 3. Multiple nodules in the left breast. Recommend correlation with recent mammography. If there is none, a diagnostic left breast mammogram is recommended. CODE T POS: CHARLES
--- NOTE | 2018-02-01 10:42 | ULT ---
GALLBLADDER ULTRASOUND: HISTORY: Abdominal pain. COMPARISON: None. TECHNIQUE: Utilizing a Multi-Hertz transducer, sonographic imaging of the right upper quadrant was performed in the longitudinal and transverse planes. FINDINGS: The head of the pancreas has a normal echotexture. The remainder of the pancreas is obscured by ganesh l gas. The visualized IVC has a normal caliber. There is a mixed echotexture focus in the left hepatic lobe, measuring 1.1 x 0.8 x 1.3 cm. Otherwise , the hepatic parenchyma is unremarkable. The contour of the hepatic margin is maintained. The righ t hepatic lobe measures 15.4 cm. The main portal vein is patent. Appropriate directional flow. Common bile duct diameter is 0.5 cm. No sonographic evidence of cholelithiasis, gallbladder wall thickening, or pericholecystic fluid. Ne gative Max sign. The right kidney has cortical thinning. No hydronephrosis. The right kidney measures 4.6 x 4.7 x 9 cm. IMPRESSION: 1. No sonographic evidence of cholelithiasis or cholecystitis. 2. Complex echotexture lesion in the left hepatic lobe. Correlation made with CT angiogram chest, 0 02/01/2018, demonstrates a well circumscribed hypodense lesion with an attenuation coefficient of 19 H [place] units. A complex hepatic cyst is favored. POS: CHARLES
[2018-02-01 10:55] LABS: Troponin I Less than 0.010 ng/mL (< 0.028)
[2018-02-01] MEDS ORDERED: Ondansetron HCl/PF 4 MG/2 ML Vial IVP PRN ×3 (11:58→12:12)
[2018-02-01] MEDS ORDERED: Ondansetron ODT 4 MG TAB SL PRN (11:58)
[2018-02-01] MEDS ORDERED: Diabetic Tussin 200 MG/10 ML UDCUP PO PRN (12:12)
[2018-02-01] MEDS ORDERED: traMADol HCl 50 MG TAB PO PRN (12:12)
[2018-02-01] MEDS ORDERED: Calcium Carbonate 500 MG ChewTAB PO PRN (12:12)
[2018-02-01] MEDS ORDERED: cloNIDine 0.1 MG TAB PO PRN (12:12)
[2018-02-01] MEDS ORDERED: Loratadine 10 MG TAB PO PRN (12:12)
[2018-02-01] MEDS ORDERED: Mag-Al 1200 mg/1200 mg/30 ML UDCUP PO PRN (12:12)
[2018-02-01] MEDS ORDERED: Senokot 8.6 MG TAB PO PRN ×2 (12:12)
[2018-02-01] MEDS ORDERED: HYDROcodone/Acetaminophen 5/325 mg Tablet PO PRN (12:12)
[2018-02-01] MEDS ORDERED: Acetaminophen 325 MG TAB PO PRN (12:12)
[2018-02-01] MEDS ORDERED: Bisacodyl 5 MG TAB PO PRN ×2 (12:12)
[2018-02-01] MEDS ORDERED: Nitroglycerin 0.4 MG TAB (25 Tab Bottle) SL PRN (12:12)
[2018-02-01] MEDS ORDERED: Benzonatate 100 MG CAP PO PRN (12:12)
[2018-02-01] MEDS ORDERED: Lorazepam 1 MG TAB PO PRN (12:12)
[2018-02-01] MEDS ORDERED: hydrALAZINE 20 MG/ML VIAL SLOW IVP PRN (12:12)
[2018-02-01 13:46] VITALS: BMI 28.3
[2018-02-01] MEDS ORDERED: Lisinopril 10 MG TAB PO SCH (13:47)
[2018-02-01 13:58] LABS: Troponin I Less than 0.010 ng/mL (< 0.028)
[2018-02-01] MEDS ORDERED: Furosemide 40 MG TAB PO SCH (14:30)
--- NOTE | 2018-02-01 14:37 | HP ---
PRIMARY CARE PHYSICIAN: Dr. Isaac Courtney. CHIEF COMPLAINT: Shortness of breath and epigastric pain. HISTORY OF PRESENT ILLNESS: Ms. Valerio is a 77-year-old female with known history of hypertension an d chronic diastolic heart failure diagnosed in 08/2017, class C as well as dyslipidemia, presented to the emergency room with the above-mentioned complaint. History is mainly obtained by the patient he rself. Electronic medical records have been reviewed. She was last admitted to our facility in 08/2017 for similar symptoms, but more so of the chest disco mfort. At that time, she underwent transthoracic echocardiogram which showed flow reversal suggestiv e of diastolic dysfunction, but preserved EF. At that time, she also had a nuclear medicine stress t est which was unremarkable. She was seen by Cardiology, Dr. Tejada, who recommended a cardiac cathet erization at that time given her risk factors, but the patient declined at that time and was discharg ed home. She came back to the emergency room today with about 2 days complain of discomfort mainly located in her epigastrium and right upper quadrant. She also reports that she is getting easily winded for the last 3-4 days. Normally, she is very active and takes care of her son and has a ramp built up for h er son's wheelchair and she exercises up and down the ramp easily, but for the last few days, she is feeling more and more short of breath and also had some chest discomfort earlier today, but mainly it was radiated pain up from her stomach. Upon presentation to the emergency room, she was hemodynamically stable. Cardiac enzymes and EKG wer e unremarkable. Emergency room physician discussed the case with me and I recommended that he discus s this with the patient and Dr. Tejada as the patient would likely need cardiac catheterization and s he has declined in the past. After discussion, the patient agreed to stay and get it done if necessa ry and Dr. Tejada has instructed to bring her in for possible cardiac catheterization tomorrow. She is otherwise hemodynamically stable. She has undergone a CT angio in the emergency room for elevated D-dimer, which is unremarkable. Ther e is no pulmonary embolism or dissection at this time. She also had a right upper quadrant ultrasoun d done in the ER for complaints of right upper quadrant pain. This also is unremarkable. There is n o cholelithiasis, gallbladder wall thickening or pericholecystic fluid. Max sign is negative. CB D is non-dilated. She was given lisinopril in the emergency room. PAST MEDICAL HISTORY: 1. Chronic diastolic congestive heart failure. 2. Hypertension. 3. Dyslipidemia. PAST SURGICAL HISTORY: Cataract removal and bilateral tubal ligation. ALLERGIES: Include PENICILLIN. SOCIAL HISTORY: She is and lives in [place], [place]. She has no history of drug, tobacco or alcohol abuse. FAMILY HISTORY: No inheritable diseases per patient report. CURRENT MEDICATIONS: Aspirin 81 mg daily, Coreg 6.25 mg p.o. b.i.d., Aldactone 25 mg daily, Lasix 40 mg daily, lisinopril 10 mg daily, simvastatin 40 mg daily. REVIEW OF SYSTEMS: A 12-point review of systems is done and is negative except for those mentioned i n the history and physical. LABORATORY DATA AND IMAGING: CBC is unremarkable. D-dimer 0.70. Serum chemistries: Blood sugar 13 3, troponin less than 0.010. CK-MB 1.0. BNP 81. BUN of 11, creatinine 0.81. Chest x-ray by my rev iew has no evidence to suggest any pleural effusion, edema or infiltrate. CT angio is negative for p ulmonary embolism and aortic dissection. There are multiple nodules noticed in the left breast and a left breast mammogram is recommended as an outpatient. There is atelectasis noticed in the lingula. Abdominal ultrasound as per HPI, negative for cholelithiasis or cholecystitis. A 12-lead EKG by my review is nonspecific. No ST or T-wave changes, normal sinus rhythm. PHYSICAL EXAMINATION: VITAL SIGNS: Most recently, pulse of 66, blood pressure 149/65. Afebrile. GENERAL: No acute distress, awake, alert, oriented x3. She does appear somewhat anxious, but in no acute distress. HEENT: Mucous membrane is moist and pink. No oropharyngeal exudate or erythema. Head is normocepha lic, atraumatic. Pupils equal, reactive to light and accommodation. Extraocular movement intact. NECK: Supple without any lymphadenopathy, JVD or bruit. CHEST: Clear to auscultation without any wheezing, rales or rhonchi. CARDIOVASCULAR: Rate and rhythm is regular without any murmur, rubs or gallops. ABDOMEN: She is tender to palpation in the epigastric region and the periumbilical region. There is no rebound, guarding or rigidity. It is soft and nondistended. EXTREMITIES: Free of any cyanosis, clubbing, or edema. NEUROLOGIC: Nonfocal. SKIN: Free of any rashes or bruises. I feel warm and dry to touch. PSYCHIATRIC: Normal affect. ASSESSMENT AND PLAN: 1. Epigastric and chest discomfort and pain. The patient can possibly be having angina equivalent g iven that she is also getting easily winded. She can also be having gastritis associated with her da carlos aspirin use. She denies any daily use of ibuprofen, but did take 1 tablet yesterday only. At th is time, she will be admitted for cardiac workup as advised during her last hospitalization by Dr. Ericka kee. We will continue to trend serial cardiac enzyme and she will be on the tele monitoring. We wi ll resume her home medications including beta dominga, TONG inhibitor and statin. She is currently no t in any decompensated heart failure. We will also start her on proton pump inhibitor to help with g astritis pain. She has no evidence of choledocholithiasis or cholelithiasis. 2. Dyspnea on exertion, likely angina equivalent. Plan as above. She will be n.p.o. after midnight tonight and we will consult Cardiology. 3. Hypertension, currently controlled. Resume home medications as above. 4. Dyslipidemia. Restart statin. 5. History of chronic diastolic congestive heart failure, currently stable. Resume Lasix and Aldact one. Monitor potassium levels. 6. CODE STATUS: FULL CODE. Discussed with the patient. 7. Deep venous thrombosis and gastrointestinal prophylaxis. DISPOSITION: Ms. Valerio is currently being admitted for further workup of chest discomfort and will likely need a cardiac catheterization. She is currently under observation status, but this can be ch anged to inpatient if cardiac catheterization is advised are necessary.
[2018-02-01 17:21] LABS: Troponin I Less than 0.010 ng/mL (< 0.028)
[2018-02-01] MEDS: Carvedilol 6.25 MG TAB PO SCH (17:45)
[2018-02-01] MEDS: Famotidine 20 MG TAB PO SCH (20:52)
[2018-02-01] MEDS ORDERED: Atorvastatin Calcium 20 MG TAB PO SCH (21:00)
--- NOTE | 2018-02-01 22:32 | CON ---
DATE OF CONSULTATION: 02/01/2018 PRIMARY CARE DOCTOR: Isaac Courtney MD PRIMARY TOBACCO SPRAYER: Dr. Tejada. REFERRING DOCTOR: Dr. Montiel. REASON FOR CARDIOLOGY CONSULTATION: Cath was recommended by primary counselor marriage and family. HISTORY OF PRESENT ILLNESS: Ms. Valerio is a 77-year-old female with a significant history of hypertension, migraine, chronic diastolic congestive heart failure, vertigo, and hyperlipidemia. The patient experienced heaviness and tightness at the chest, at the upper midsternal area with short ness of breath since yesterday and top over that she started having nausea with dry heaves around 2:0 0 a.m. this morning and the patient's symptoms are getting worse. The patient decided to present to the emergency department at [facility] around 6:00 a.m. After she received 4 tablets of aspirin, nitro glycerin, and some kind of IV medication, she feel better and at this moment during the Cardiology co nsult, the patient denied any chest pain or tightness or shortness of breath at this moment. She was in the hospital on August for shortness of breath and she was diagnosed as chronic diastolic congesti ve heart failure. The patient has been seen by Dr. Tejada's office. Since she was discharged from [facility], she has continued to have a shortness of breath, dyspnea of exertion with mild movement or walk ing long distance. She had been watching her diet especially watching fluid and sodium intake since she was discharged in 08/2017. She also complained of cramping in the left neck, last episode was la st 3 to 4 weeks ago. At this moment, the patient denied any shortness of breath; heaviness, tightnes s, or discomfort in her chest; palpitation; fluttering or any other cardiac complaints. Last time, the patient was here in 08/2017. She was told whether the patient had to have cardiac cat heterization. However, after the patient's test was normal, she was told by Dr. Tejada that the rubén ent does not need acute cardiac catheterization and the patient's echocardiogram was done, last one w as at 08/2017 which shows EF of 55% to 60% suggestive of diastolic dysfunction, mild LVH, mild mitral valve regurgitation, trace aortic insufficiency, mild tricuspid regurgitation and normal pulmonary a rtery pressure. MEDICAL HISTORY: 1. Chronic diastolic heart failure. 2. Hypertension. 3. Migraine. 4. Vertigo. 5. Hyperlipidemia. PAST SURGICAL HISTORY: Left cataract surgery, tubal ligation. FAMILY HISTORY: The patient's mother due to the complications of congestive heart failure a t the age of 80. The patient's oldest son due to myocardial infarction at the age of 56. H owever, the patient born as a premature and through her life she has cardiac related problem and the patient had defibrillator placement. Other than that, she does not have any significant cardiac or d iabetes or hypertension or CVA related disease. SOCIAL HISTORY: The patient is . She lived with 2 sons. The patient denied any EtOH, tobacco, or illicit drug abuse. She drinks 2 cups of coffee and one glass of tea for lunch. ALLERGIES: She is allergic to PENICILLIN. MEDICATIONS: 1. Simvastatin 40 mg once a day. 2. Lisinopril 10 mg once a day. 3. Aspirin 81 mg once a day. 4. Lasix 40 mg once a day. 5. Spironolactone 25 mg once a day. 6. Carvedilol 6.25 twice a day. REVIEW OF SYSTEMS: Review of systems are negative, unless otherwise mentioned in the HPI or below. PHYSICAL EXAMINATION: VITAL SIGNS: Blood pressure 149/65 and pulse is 66. GENERAL: The patient is alert and oriented x4. No acute distress. HEAD: Normocephalic and atraumatic. EYES: Extraocular muscle movements are intact. ENT/MOUTH/NOSE: Oral mucosa are moist without lesion. RESPIRATORY: Clear to auscultation bilaterally. NECK: Supple. No JVD or normal range of motion. CARDIOVASCULAR: Regular rate and rhythm. There are normal S1 and S2. There are no S3 or S4. No si gnificant murmur, thrill, bruit, or rubs noted. Carotid pulses are present with bruits in the right neck, but not in left side. They have 2+ pulses in the bilateral lower extremities. There are trace to +1 edema in the lower extremities in her hand. ABDOMEN: Nontender or mass to palpate. Bowel sounds are present. MUSCULOSKELETAL: The patient able to move all extremities. The patient denies any claudication. SKIN: Warm and dry. No rash, bruise, or lesion noted. PSYCHIATRIC: Normal affect. LABORATORY DATA: WBC 8.6, hemoglobin 12.4, hematocrit 36.8, platelet 282. D-dimer 0.7. Sodium 138, potassium 3.8, BUN 11, creatinine 0.81, glucose 133. AST 9, ALT 10. CK-MB to 1.0. Troponins are n egative x2. Next, we will draw around 4 this afternoon. BNP 81. Cholesterol is 171, triglycerides 152, HDL 52, and LDL 84. IMAGING STUDIES: CT scan of the chest view was done due to the elevated D-dimer, which shows no basa l segmental pulmonary artery filling defect, no proximal segmental pulmonary artery filling defect, m ultiple nodules in the left breast. The patient's abdomen ultrasound was done due to complaint of th e abdominal pain, showing no significant evidence of cholelithiasis or cholecystitis and also complex hepatic cyst is favored. ASSESSMENT AND PLAN: 1. Chest pain. The patient's 12-lead EKG and a troponin level is stable with no acute or chronic ab normality. At this moment, the patient will have vital signs stable and the patient's last stress te st in 08/2017 shows normal function without any cardiac ischemia noted. I would like to defer the de cision whether the patient needs further cardiac workup to Dr. Tejada. 2. Hypertension. The patient's blood pressure is stable at this moment. 3. Chronic diastolic congestive heart failure. The patient's condition is stable with room air. We would like to continue to monitor the blood pressure. 4. Hyperlipidemia. She is on the statin once a day. 5. Neck pain on the right side. The patient's condition is stable at this moment. We would like to continue to monitor. 6. Hyperlipidemia. The patient is on the statin at this moment. Thank you very much for Cardiology service to participate in the care of this patient. We will follo w along the patient's care team and make further recommendation as appropriate.
[2018-02-02 05:21] LABS: #Eosinphils 0.1 thou/uL (0.0-0.7); #Lymphocytes 1.8 thou/uL (1.20-3.40); #Monocytes 0.6 thou/uL (0.11-0.59); #Neutrophils 3.2 thou/uL (1.40-6.50); %Basophils 0.7 % (0.0-1.0); %Eosinophils 1.9 % (0.0-10.0); %Lymphocytes 31.3 % (21.0-51.0); %Monocytes 10.1 % (0.0-10.0); Hemoglobin 11.3 g/dL (12.0-16.0); Mean Corpuscular HGB CONC 32.6 g/dL (32.0-36.0); Mean Corpuscular Hemoglobin 28.9 pg (27.0-31.0); Mean Corpuscular Volume 88.7 fL (78.0-98.0); Mean Platelet Volume 7.6 fL (7.4-10.4); Platelet Count 254 thou/uL (130-400); RBC Distribution Width 12.3 % (11.5-14.5); Red Blood Cell (RBC) Count 3.91 mill/uL (4.20-5.40); White Blood Cell (WBC) Count 5.7 thou/uL (4.8-10.8)
[2018-02-02 05:31] LABS: Anion Gap 9 mmol/L (10-20); BUN (Urea Nitrogen) 10 mg/dL (9.8-20.1); Calc. Creatinine Clearance 67 mL/min (70-130); Calcium 8.9 mg/dL (7.8-10.44); Carbon Dioxide 26 mmol/L (23-31); Chloride 107 mmol/L (98-107); Estimated GFR-MDRD 71; Glucose 103 mg/dL (83-110); Potassium 3.7 mmol/L (3.5-5.1); Sodium 138 mmol/L (136-145)
[2018-02-02 05:52] LABS: Free T4 (Free Thyroxine) 0.89 ng/dL (0.70-1.48)
[2018-02-02] MEDS ORDERED: Sodium Chloride 0.9% 1,000 ML IV SCH (07:15)
[2018-02-02] MEDS ORDERED: Communication Order-Pharmacy FS SCH (07:15)
[2018-02-02] MEDS ORDERED: Diazepam 5 MG TAB PO SCH (07:15)
--- NOTE | 2018-02-02 07:20 | PRG ---
DATE OF SERVICE: 02/02/2018 Ms. Valerio states she feels better today. Yesterday, she had what sounds like epigastric pain going up into her chest and had a chest pressure sensation. It was relieved with nitroglycerin. EKG did n ot show ischemia. The cardiac enzymes are negative. I discussed the options with Ms. Valerio. Cardi ac catheterization would be the most definitive test to see whether she does or does not have coronar y disease. I explained the procedure, risks, benefits. Risks including stroke, heart attack, iodine allergy, interfering to blood supply to the leg or kidney, stent thrombosis, need for coronary surg erma. The patient understands and wishes to proceed.
[2018-02-02] MEDS ORDERED: Furosemide 40 MG TAB PO SCH (07:30)
[2018-02-02] MEDS ORDERED: Spironolactone 25 MG TAB PO SCH (08:00)
[2018-02-02] MEDS ORDERED: Lidocaine 1% (PF) 30 ML VIAL ONE (08:14)
--- NOTE | 2018-02-02 08:20 | ADD-CON ---
ADDENDUM: Please refer to the notes already dictated by my nurse practitioner Anu Lezama. DATE OF ADMISSION: 02/01/2018 DATE OF CONSULTATION: 02/01/2018 INDICATION FOR CONSULTATION: A 77-year-old female with chest pain. Ms. Valerio is a very pleasant 77 -year-old female who has been seen by Dr. Tejada in the past. There has been some discussion about p erforming cardiac catheterization as she has had episodes of chest discomfort in the past with heavin ess that she describes it. She did undergo stress testing; however, recently in the hospital which s howed no evidence of underlying ischemia according to the report, but there may be some ischemic ulrich ges noted during the EKGs in the stress testing because there is indication by Dr. Tejada that the pa dominick may have underlying ischemia. She has been somewhat reluctant to undergo cardiac catheterizati on and she says her sister had a cardiac catheterization, had a blood clot. This sounds as if she mcintosh d a hematoma after the cardiac catheterization. Otherwise, this lady was at home and she was awakene d 2:00 in the morning, not feeling very well, and said she developed abdominal pain which radiated to the chest area and then she became somewhat short of breath and presented later to the emergency mynor m, and at this time she is being evaluated due to the complaints of her chest discomfort. Her EKG di d not show any acute changes that would indicate ischemia. She has a sinus rhythm with a first-degre e AV heart block. Her cardiac enzymes are also unremarkable. There is no indication that she has an y significant ischemic change as far as laboratory data is concerned. She did have hyperthyroidism w ith TSH was low at 0.2915 and otherwise, her cardiac enzymes are negative. Her BNP was only 81. Her other laboratory data were also relatively unremarkable except for blood sugar of 133. Her iron was also low at 32. Hemoglobin and hematocrit otherwise were stable. PHYSICAL EXAMINATION: GENERAL: Reveals a very pleasant lady who is in no acute distress at this time. VITAL SIGNS: Her blood pressure is 133/62. She is afebrile, heart rate is 81 and regular, respirato ry rate is 21. HEENT: Shows head to be normocephalic and atraumatic. She does have bilateral carotid bruits which are soft, but are present. She also has a very soft systolic murmur at the upper sternal border on t he right side compatible with probably some aortic valve sclerosis. Otherwise, she had a regular rat e and rhythm with no significant murmurs. CHEST: Clear to auscultation. ABDOMEN: Somewhat tender, but no palpable masses were noted. EXTREMITIES: Showed no clubbing, cyanosis or edema. Pedal pulses are present. NEUROLOGIC: The patient appears to be intact. IMPRESSION: Chest heaviness and pressure in an elderly female who does have some risk factors for co ronary artery disease as dictated by the nurse practitioner. She has had other admissions for this c hest discomfort and may be a candidate to undergo a cardiac catheterization as a definitive method of ruling out or rule in the coronary artery disease. She also says she has some dyslipidemia as well as her hypertension. At this time, she appears to be stable and is in no acute distress or pain at t his time. Further care of the patient will be determined by Dr. Tejada when she sees the patient benja orrow. At this time, I will keep her n.p.o. in case she decides to perform a cardiac catheterization tomorrow.
[2018-02-02] MEDS: Carvedilol 6.25 MG TAB PO SCH (08:38)
[2018-02-02 08:42] VITALS: TEMP 98.3
[2018-02-02] MEDS ORDERED: Fentanyl 100 MCG/2 ML VIAL ONE (08:51)
[2018-02-02] MEDS ORDERED: Midazolam HCl 2 mg/2 ml Vial ONE (08:51)
[2018-02-02] MEDS ORDERED: Enoxaparin Sodium 40 MG/0.4 ML SYRINGE SC SCH (09:00)
[2018-02-02] MEDS ORDERED: Lisinopril 10 MG TAB PO SCH ×2 (09:00)
[2018-02-02] MEDS ORDERED: Nitroglycerin 100MG/250ML BOT 250 ML ONE (09:19)
[2018-02-02] MEDS ORDERED: Metoprolol Tartrate 5 MG/5 ML VIAL ONE (09:19)
[2018-02-02] MEDS ORDERED: traMADol HCl 50 MG TAB PO PRN (09:46)
[2018-02-02] MEDS ORDERED: Nitroglycerin 0.4 MG TAB (25 Tab Bottle) SL PRN (09:46)
[2018-02-02] MEDS ORDERED: Acetaminophen/Codeine 30-300mg Tablet PO PRN (09:46)
[2018-02-02] MEDS ORDERED: Sodium Chloride 0.9% 200 ML IV SCH (10:00)
[2018-02-02] MEDS ORDERED: Iopamidol 370 76% 100 ML VIAL ONE (10:21)
[2018-02-02] MEDS ORDERED: Aspirin 81 mg Enteric Coated Tablet PO SCH (10:30)
[2018-02-02] MEDS: Famotidine 20 MG TAB PO SCH (12:08)
[2018-02-02] MEDS ORDERED: Clopidogrel Bisulfate 300 MG TAB PO SCH (13:15)
--- NOTE | 2018-02-02 13:16 | PRG ---
DATE OF SERVICE: 02/02/2018 SUBJECTIVE: Ms. Valerio underwent cardiac catheterization today that revealed the followin. Left main normal. 2. LAD normal, circumflex normal. 3. 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 4. Ejection fraction 60%. LV pressure 117/6. The stenosis in the posterior descending artery is a poor area for stent implantation stating that area could jeopardize the main right coronary, should b e treated medically. Discussed this with patient. We will add Plavix 75 mg a day for at least 3 mon ths. Continue aspirin 81 mg a day. 5. Nitroglycerin if needed and atorvastatin 40 mg a day. Also, consider medicine for acid reflux fo r a month. She has an appointment to see us in the office. She should take nitroglycerin if she has recurrent chest pain. Ultrasound of the gallbladder was negative for gallstones.
--- NOTE | 2018-02-02 14:36 | DIS ---
DATE OF ADMISSION: 02/01/2018 DATE OF DISCHARGE: 02/02/2018 CONDITION AT THE TIME OF DISCHARGE: Stable and improved. DISCHARGE DISPOSITION: Home. DISCHARGE DIAGNOSES: 1. Chest pain, likely noncardiac, but angina cannot be ruled out. 2. Epigastric pain, likely gastritis. SECONDARY DISCHARGE DIAGNOSES: 1. Hypertension. 2. Dyslipidemia. 3. Chronic diastolic congestive heart failure. DISCHARGE MEDICATIONS: Home medications as per the HPI. New medications as follows: Protonix 40 mg daily, sublingual nitroglycerin every 5 minutes as needed for chest pain, and Plavix 75 mg daily. O therwise, she will resume her lisinopril, simvastatin, aspirin, and Lasix. DISCONTINUED MEDICATION: Aldactone. PRIMARY CARE PHYSICIAN: Isaac Courtney M.D. PRIMARY FORM MAKER PLASTER: Dr. Tejada. INHOUSE CONSULTATIONS: Cardiology, Dr. Grimes and Dr. Smitha Tejada. PROCEDURES DONE IN THE HOSPITAL: 1. CT angio of the thorax upon presentation, which is negative for any pulmonary embolism or dissect ion. 2. Abdominal ultrasound, which is negative for any cholelithiasis or any evidence of cholecystitis. There is no CBD dilatation. 3. Cardiac catheterization, which showed mid 60% ostial PDA stenosis. RCA 30%. Left main LAD and c ircumflex are normal. Left ventricular ejection fraction 60%. Medical therapy indicated. HISTORY OF PRESENT ILLNESS: Ms. Valerio is a pleasant 77-year-old female with a negative cardiac stre ss test earlier this year, presented to the emergency room again with complaints of shortness of rainer th and epigastric pain going up to her chest. Cardiac enzyme, EKG, CT angio were all unremarkable up on presentation. It was noted that her flower grower, Dr. Tejada has advised cardiac catheterization during last hospitalization to assess recurrent episodes of chest pain, but the patient has deferred it earlier. At this time, she was brought in for the same. Please see admission history and physica l for further detail. The patient was stable otherwise. HOSPITAL COURSE: The patient underwent right upper quadrant ultrasound given her right upper quadran t pain and epigastric pain, which was unremarkable. She was started on proton pump inhibitor and had some improvement in her symptoms and was continued on it. She underwent cardiac catheterization by Dr. eTjada, which is 60% lesion in the ostium which was not amenable to any intervention. Medical th erapy was indicated. She was started on Plavix and is instructed to take it for at least 3 months an d follow up with Dr. Tejada as an outpatient. She will continue her aspirin, lisinopril, Coreg, and Lasix, otherwise. She will continue her simvastatin. She is already on Lasix as well as Aldactone. Her echo was reviewed from 08/2017, which showed EF of 55% to 60% with mild diastolic dysfunction. I do not feel the necessity or indication of Aldactone, at this time she was taken off of it. She was seen and examined prior to discharge. Discharge plan was discussed with the patient and she verbalized understanding. She will also follow up with primary care physician in 1 week. PHYSICAL EXAMINATION: VITAL SIGNS: Temperature 98.3, pulse of 77, respirations 20, saturating 98% on room air, and blood p ressure 143/65. GENERAL: No acute distress, awake, alert, oriented x3. CHEST: Clear to auscultation bilaterally. Rate and rhythm is regular. Catheterization site in the right groin is without any bleed or hematoma. Prescriptions were sent to the pharmacy.
[2018-02-02 15:39] VITALS: BP 154/68
[2018-02-02] MEDS ORDERED: Atorvastatin Calcium 40 MG TAB PO SCH (21:00)
[2018-02-03] MEDS ORDERED: Clopidogrel Bisulfate 75 MG TAB PO SCH (09:00)
[2018-02-03] MEDS ORDERED: Aspirin 81 mg Enteric Coated Tablet PO SCH (09:00)
--- NOTE | 2018-02-04 17:59 | EKG ---
Test Reason : Blood Pressure : / mmHG Vent. Rate : 066 BPM Atrial Rate : 066 BPM P-R Int : 214 ms QRS Dur : 074 ms QT Int : 450 ms P-R-T Axes : 069 041 049 degrees QTc Int : 471 ms Sinus rhythm with 1st degree A-V block Otherwise normal ECG Confirmed by JO-ANN LINDESY, JUSTIN ([id number]), dictionary editor JEANNIE FYR ([id number]) on 02/04/2018 5:59:32 PM Referred By: Confirmed By:JUSTIN BUSCH MD
== END 2018-02-02 15:39 | disposition home or self-care (01) ==
LOC: ERS 08:51 → 2SW 11:47
PROVIDERS: ADMIT Internal Medicine; ATTEND Internal Medicine
PROC: 4A023N7 Measurement of Cardiac Sampling and Pressure, Left Heart, Percutaneous Approach (ICD-10-PCS; principal; 2018-02-01)
PROC: B2111ZZ Fluoroscopy of Multiple Coronary Arteries using Low Osmolar Contrast (ICD-10-PCS; 2018-02-01)
DX: I25.119 Atherosclerotic heart disease of native coronary artery with unspecified angina pectoris (principal); E78.00 Pure hypercholesterolemia, unspecified; I11.0 Hypertensive heart disease with heart failure; I50.32 Chronic diastolic (congestive) heart failure; E78.5 Hyperlipidemia, unspecified; G43.909 Migraine, unspecified, not intractable, without status migrainosus; R42 Dizziness and giddiness; Z79.82 Long term (current) use of aspirin; Z79.899 Other long term (current) drug therapy; Z88.0 Allergy status to penicillin; Z95.810 Presence of automatic (implantable) cardiac defibrillator; Z98.890 Other specified postprocedural states
CPT/HCPCS: 71275; 76705; 76942; 80048; 84439; 84443; 84481; 84484; 85025; 93005; 93458; 97139; 99285; C1769; G0378 ×2; 36415; 99152; J1644; J2001; J2250; J3010

== ENCOUNTER 2020-04-04 15:07 | Outpatient (CLI) | payer MEDICARE, OTHER ==
--- NOTE | 2020-04-04 16:18 | MRI ---
MR CERVICAL SPINE WITHOUT CONTRAST: 04/04/20 INDICATION: 80-year-old female with cervical radiculopathy. COMPARISON: Prior MR cervical spine without contrast from [facility] dating 01/28/13. FINDINGS: Spinal alignment is preserved. Bone marrow signal intensity appears within normal limits. The prevert ebral soft tissues demonstrate normal appearance. There is partial visualization of the patient's pre viously reported thyroid goiter. Visualized aspects of the posterior fossa appears within normal limits. At C2-C3, there is no appreciable central canal or neural foraminal narrowing. At C3-C4, there is a broad based bulge and central protrusion causing moderate central canal narrowin g which is much more prominent than on the prior examination. There is mild effacement of the spinal cord without cord signal abnormality. At C4-C5, there is a broad based bulge causing mild central canal narrowing. There is uncovertebral h ypertrophy and facet joint degenerative change inducing moderate bilateral neural foraminal narrowing which appears more pronounced on the prior exam. At C5-C6, there is uncovertebral hypertrophy, facet joint degenerative change inducing moderate left and mild right neural foraminal narrowing with mild central canal narrowing. This appears relatively stable to the prior exam. At C6-C7, there is a disc osteophyte complex with uncovertebral hypertrophy inducing moderate bilater al neural foraminal narrowing with mild central canal narrowing that appears stable to the prior exam . At C7-T1, there is no appreciable central canal or neural foraminal narrowing. IMPRESSION: 1. Worsening moderate central canal narrowing at C3-4 causing some mild ventral effacement of th e spinal cord. 2. Worsening mild central canal narrowing and moderate bilateral neural foraminal narrowing at C 4-5. 3. Stable mild central canal narrowing with bilateral neural foraminal narrowing at C5-6. 4. Stable central canal narrowing with bilateral neural foraminal narrowing at C6-7. POS: CHELI
== END 2020-04-04 15:08 | disposition home or self-care (01) ==
LOC: BICMRI 15:07
PROVIDERS: ATTEND Family Medicine
DX: M54.12 Radiculopathy, cervical region (principal); M48.02 Spinal stenosis, cervical region
CPT/HCPCS: 72141

== ENCOUNTER 2020-05-31 08:45 | Observation (INO) | payer MEDICARE, OTHER ==
[2020-05-31] MEDS ORDERED: Promethazine HCl 25 MG/ML VIAL ONE (09:09)
--- NOTE | 2020-05-31 09:39 | ULT ---
US Gallbladder RUQ History: Right upper quadrant pain Comparison: Reference is made to CT examination same day Findings: Real-time grayscale and color evaluation right upper quadrant of the abdomen was performed. Visualized portion of the aorta, IVC and pancreas are unremarkable. Hepatic cysts are present. Liver measures 14.2 cm in length. Portal vein is patent with antegrade flow. Common bile duct measures 6 mm. No cholelithiasis or cholecystitis. Right kidney measures 9.5 x 4.6 x 4.1 cm without mass or hydronephrosis. Impression: No acute inflammatory process right upper quadrant. No cholelithiasis or cholecystitis.
[2020-05-31] MEDS ORDERED: Pantoprazole 40 MG VIAL ONE (10:34)
[2020-05-31 12:27] LABS: #Lymphocytes 1.2 thou/uL (1.20-3.40); #Monocytes 0.3 thou/uL (0.11-0.59); #Neutrophils 7.2 thou/uL (1.40-6.50); %Eosinophils 0.1 % (0.0-10.0); %Lymphocytes 14.2 % (21.0-51.0); %Monocytes 3.2 % (0.0-10.0); %Neutrophils 82.5 % (42.0-75.0); Hemoglobin 12.6 g/dL (12.0-16.0); Mean Corpuscular HGB CONC 33.6 g/dL (32.0-36.0); Mean Corpuscular Hemoglobin 30.6 pg (27.0-31.0); Mean Platelet Volume 7.3 fL (7.4-10.4); Platelet Count 256 thou/uL (130-400); Red Blood Cell (RBC) Count 4.11 mill/uL (4.20-5.40); White Blood Cell (WBC) Count 8.7 thou/uL (4.8-10.8)
[2020-05-31 12:49] LABS: ALT (SGPT) 14 U/L (8-55); AST (SGOT) 12 U/L (5-34); Albumin 4.1 g/dL (3.4-4.8); Alkaline Phosphatase 85 U/L (40-110); Anion Gap 15 mmol/L (10-20); BUN (Urea Nitrogen) 17 mg/dL (9.8-20.1); Bilirubin, Total 0.4 mg/dL (0.2-1.2); Calc. Creatinine Clearance 0 mL/min (70-130); Calcium 8.9 mg/dL (7.8-10.44); Carbon Dioxide 23 mmol/L (23-31); Chloride 105 mmol/L (98-107); Globulin 2.8 g/dL (2.4-3.5); Glucose 125 mg/dL (83-110); Lipase 30 U/L (8-78); Potassium 4.6 mmol/L (3.5-5.1); Protein, Total 6.9 g/dL (6.0-8.3); Sodium 138 mmol/L (136-145)
[2020-05-31] MEDS ORDERED: HYDROcodone/Acetaminophen 5/325 mg Tablet PO PRN ×2 (13:56)
[2020-05-31] MEDS ORDERED: Acetaminophen 325 MG TAB PO PRN (13:56)
[2020-05-31] MEDS ORDERED: Ondansetron ODT 4 MG TAB PO PRN (13:56)
--- NOTE | 2020-05-31 14:03 | PDOC.HHP ---
Hospitalist HPI - History of Present Illness Abdominal pain History of Present Illness: Patient is a 80-year-old female who presented via the emergency department. Patient reported that she had the onset of abdominal pain last night around 9 PM. She had no precipitating factors that she is aware of. She described the pain as a "drawing" pain in the center of her upper abdomen. She rated the pain as 10 out of 10 at worst. She tried to change positions with no change in her symptoms. She did not take any medications because she was afraid to interact with her heart medications. She denied any fevers or chills. She has been having normal bowel and bladder habits. She reports that her pain is improving now and is essentially gone. She would like to eat. ED Course: Patient had a CT of the abdomen showing no acute findings. She was given pantoprazole and Phenergan. Vital signs were stable. She did not have significant leukocytosis. Hospitalist ROS - Review of Systems Constitutional: denies: fever, chills Respiratory: denies: cough, shortness of breath Cardiovascular: denies: chest pain, palpitations Gastrointestinal: reports: abdominal pain. denies: nausea, vomiting, diarrhea, constipation All other systems reviewed; all pertinent +/- noted in HPI/Subj - Medication Medications: Carvedilol 6.25 mg p.o. daily Lisinopril 10 mg p.o. daily Simvastatin 40 mg p.o. daily Patient has been on Lasix 40 mg p.o. daily (trying to confirm that she is still on this at this time). Hospitalist History - Past Medical History Source: patient Cardiac: reports: CHF Other Medical History: Bilateral carpal tunnel syndrome - Past Surgical History Past Surgical History: reports: Cataract Removal, Tubal Ligation - Family History Family History: reports: cardiac disorder (Mother had CHF), Other (Father had COPD/emphysema) - Social History Smoking Status: Never smoker Alcohol: reports: None Drugs: reports: none Other Social History: Patient is . She lives with her disabled son. She is full code. - Exam General Appearance: NAD, awake alert ENT: normocephalic atraumatic, no oropharyngeal lesions, moist mucosa Neck: supple, symmetric, no JVD, no thyromegaly, no lymphadenopathy, no carotid bruit Heart: RRR, no murmur, no gallops, no rubs, normal peripheral pulses Respiratory: CTAB, no wheezes, no rales, no ronchi, normal chest expansion, no tachypnea, normal percussion Gastrointestinal: soft, non-distended, normal bowel sounds, no palpable masses, no hepatomegaly, no splenomegaly, no bruit, no guarding, no rigidity, tender to palpation (Very minimal tenderness in the right epigastric area. Not specifically tender over the gallbladder area.) Extremities: no cyanosis, no clubbing, no edema Neurological: no focal deficits Musculoskeletal: normal tone, normal strength, no muscle wasting Psychiatric: normal affect, normal behavior, A&O x 3 Hospitalist Results - Labs Result Diagrams: 05/31/20 12:19 05/31/20 12:19 Lab results: WBC 8.7 thou/uL (4.8-10.8) 05/31/20 12:19 Hgb 12.6 g/dL (12.0-16.0) 05/31/20 12:19 Hct 37.4 % (36.0-47.0) 05/31/20 12:19 MCV 91.0 fL (78.0-98.0) 05/31/20 12:19 Plt Count 256 thou/uL (130-400) 05/31/20 12:19 Neutrophils % 82.5 % (42.0-75.0) H 05/31/20 12:19 Sodium 138 mmol/L (136-145) 05/31/20 12:19 Potassium 4.6 mmol/L (3.5-5.1) 05/31/20 12:19 Chloride 105 mmol/L (98-107) 05/31/20 12:19 Carbon Dioxide 23 mmol/L (23-31) 05/31/20 12:19 BUN 17 mg/dL (9.8-20.1) 05/31/20 12:19 Creatinine 0.84 mg/dL (0.6-1.1) 05/31/20 12:19 Glucose 125 mg/dL (83-110) H 05/31/20 12:19 Calcium 8.9 mg/dL (7.8-10.44) 05/31/20 12:19 Total Bilirubin 0.4 mg/dL (0.2-1.2) 05/31/20 12:19 AST 12 U/L (5-34) 05/31/20 12:19 ALT 14 U/L (8-55) 05/31/20 12:19 Alkaline Phosphatase 85 U/L (40-110) 05/31/20 12:19 Troponin I Less than 0.010 ng/mL (< 0.028) 05/31/20 12:19 Serum Total Protein 6.9 g/dL (6.0-8.3) 05/31/20 12:19 Albumin 4.1 g/dL (3.4-4.8) 05/31/20 12:19 Lipase 30 U/L (8-78) 05/31/20 12:19 - EKG Interpretation EKG: Nonischemic - Radiology Interpretation CT scan - abdomen Status: image reviewed by me, report reviewed by me (No acute inflammatory changes.) Hospitalist H&P A/P - Problem (1) Abdominal pain Code(s): R10.9 - UNSPECIFIED ABDOMINAL PAIN Status: Acute (2) Congestive heart failure Code(s): I50.9 - HEART FAILURE, UNSPECIFIED Status: Acute Qualifiers: Heart failure type: diastolic Heart failure chronicity: chronic Qualified Code(s): I50.32 - Chronic diastolic (congestive) heart failure (3) Dyslipidemia Code(s): E78.5 - HYPERLIPIDEMIA, UNSPECIFIED Status: Chronic (4) HTN (hypertension) Code(s): I10 - ESSENTIAL (PRIMARY) HYPERTENSION Status: Chronic Qualifiers: Hypertension type: essential hypertension Qualified Code(s): I10 - Essential (primary) hypertension - Plan Plan: Abdominal pain: Patient had acute onset of a colicky type epigastric abdominal pain at 9 PM last night. Patient seems to be improving without specific interventions other than Phenergan and Protonix given in the emergency department. Her exam appears to be significantly improved from the exam in the emergency department. She had a negative CT abdomen and negative ultrasound of the gallbladder. LFTs are normal, lipase is normal, WBC is normal. Suspect at this point the patient was likely having some spastic issue with her colon. Appears to be resolving. We will go ahead and let her eat. If she does not have recurrence of the pain will consider discharge first thing in the morning. If her pain recurs may need to consider HIDA scan. Congestive heart failure: Appears to be chronic diastolic failure. She has no evidence of acute decompensation. Continue with her usual home regimen. Hypertension: Continue with her TONG inhibitor and beta-dominga.
[2020-05-31 14:05] VITALS: BMI 27.6
[2020-05-31] MEDS: Carvedilol 6.25 MG TAB PO SCH (17:28)
[2020-05-31] MEDS ORDERED: Melatonin 3 MG TAB PO PRN (19:47)
[2020-05-31] MEDS ORDERED: Atorvastatin Calcium 20 MG TAB PO SCH (21:00)
[2020-06-01 02:29] LABS: SARS-CoV-2 PCR by NAA Not Detected (NotDetected)
[2020-06-01 05:42] LABS: #Basophils 0.1 thou/uL (0.0-0.2); #Eosinphils 0.2 thou/uL (0.0-0.7); #Lymphocytes 2.6 thou/uL (1.20-3.40); #Monocytes 0.6 thou/uL (0.11-0.59); #Neutrophils 5.6 thou/uL (1.40-6.50); %Basophils 0.8 % (0.0-1.0); %Eosinophils 2.3 % (0.0-10.0); %Lymphocytes 28.6 % (21.0-51.0); %Monocytes 6.3 % (0.0-10.0); Hemoglobin 11.2 g/dL (12.0-16.0); Mean Corpuscular HGB CONC 33.2 g/dL (32.0-36.0); Mean Corpuscular Hemoglobin 29.9 pg (27.0-31.0); Mean Corpuscular Volume 90.1 fL (78.0-98.0); Platelet Count 246 thou/uL (130-400); RBC Distribution Width 12.2 % (11.5-14.5); Red Blood Cell (RBC) Count 3.74 mill/uL (4.20-5.40)
[2020-06-01 06:05] LABS: Anion Gap 11 mmol/L (10-20); BUN (Urea Nitrogen) 23 mg/dL (9.8-20.1); Calc. Creatinine Clearance 54 mL/min (70-130); Calcium 8.4 mg/dL (7.8-10.44); Carbon Dioxide 25 mmol/L (23-31); Chloride 106 mmol/L (98-107); Glucose 114 mg/dL (83-110); Sodium 138 mmol/L (136-145)
[2020-06-01 08:54] VITALS: TEMP 98.1
[2020-06-01] MEDS ORDERED: Aspirin Chewable 81 MG TAB PO SCH (09:00)
[2020-06-01] MEDS ORDERED: Lisinopril 10 MG TAB PO SCH (09:00)
[2020-06-01] MEDS: Carvedilol 6.25 MG TAB PO SCH (09:07)
--- NOTE | 2020-06-01 11:29 | PDOC.HOSPP ---
- Subjective Encounter Date: 06/01/20 Encounter Time: 11:26 Subjective: Ms. Orellana was seen today in follow-up of abdominal pain. She says her symptoms have completely resolved. She denies abdominal pain or nausea. - Objective Vital Signs & Weight: Vital Signs (12 hours) Temp Pulse Resp BP BP BP BP 06/01/20 09:07 116/64 06/01/20 09:06 116/64 06/01/20 08:03 98.1 F 77 20 116/64 06/01/20 04:07 98.2 F 91 16 94/55 L 06/01/20 00:22 98.3 F 97 16 100/57 L Pulse Ox 06/01/20 09:07 06/01/20 09:06 06/01/20 08:03 96 06/01/20 04:07 97 06/01/20 00:22 96 Weight Weight 156 lb I&O: 05/31/20 06/01/20 06/02/20 06:59 06:59 06:59 Intake Total 1500 Balance 1500 Result Diagrams: 06/01/20 05:31 06/01/20 05:31 Hospitalist ROS - Medication Medications: Active Medications Generic Name Dose Route Start Last Admin Trade Name Freq PRN Reason Stop Dose Admin Acetaminophen 650 mg 05/31/20 13:56 06/01/20 04:19 Acetaminophen 325 Mg Tab PO 650 mg Q4H PRN Administration Headache/Fever/Mild Pain (1-3) Aspirin 81 mg 06/01/20 09:00 06/01/20 09:07 Aspirin Chewable 81 Mg Tab PO 81 mg DAILY MARVIN Administration Atorvastatin Calcium 20 mg 05/31/20 21:00 05/31/20 20:51 Atorvastatin Calcium 20 Mg Tab PO 20 mg QPM MARVIN Administration Carvedilol 6.25 mg 05/31/20 17:00 06/01/20 09:07 Carvedilol 6.25 Mg Tab PO 6.25 mg BID-WM MARVIN Administration Lisinopril 10 mg 06/01/20 09:00 06/01/20 09:06 Lisinopril 10 Mg Tab PO 10 mg DAILY MARVIN Administration Melatonin 3 mg 05/31/20 19:47 05/31/20 20:51 Melatonin 3 Mg Tab PO 3 mg HSPRN PRN Administration Insomnia - Exam Eye: PERRL, anicteric sclera Heart: RRR, no murmur, no gallops, no rubs, normal peripheral pulses Respiratory: CTAB, no wheezes, no rales, no ronchi, normal chest expansion, no tachypnea, normal percussion Gastrointestinal: soft, non-tender, non-distended, normal bowel sounds, no palpable masses, no hepatomegaly Extremities: no cyanosis, no edema Hosp A/P (1) Abdominal pain Code(s): R10.9 - UNSPECIFIED ABDOMINAL PAIN Status: Acute (2) Congestive heart failure Code(s): I50.9 - HEART FAILURE, UNSPECIFIED Status: Acute Qualifiers: Heart failure type: diastolic Heart failure chronicity: chronic Qualified Code(s): I50.32 - Chronic diastolic (congestive) heart failure (3) HTN (hypertension) Code(s): I10 - ESSENTIAL (PRIMARY) HYPERTENSION Status: Chronic Qualifiers: Hypertension type: essential hypertension Qualified Code(s): I10 - Essential (primary) hypertension - Plan * Abdominal pain- resolved- she described some GERD- like symptoms, with burning which came up to her throat.- Will discharge her on a trial of Protonix * CHF- ubknown type- compensated * Stable for discharge home if symptoms recur then out patient GI evaluation
[2020-06-01 12:42] VITALS: BP 95/58
--- NOTE | 2020-06-01 18:00 | PDOC.DS.DS ---
Provider - Provider Date of Admission: 05/31/20 10:22 Date of Discharge: 06/01/20 Admitting Provider: Israel Metz MD Primary Care Physician: Isaac Courtney MD Course - Hospital Course Hospital Course: Ms. Orellana is a pleasant 80-year-old female who presented to the emergency room with complaints of severe abdominal pain. The full details of which are outlined in the history and physical. She described the pain as at times burning and coming up to her throat. She said it was very severe and lasted a lot longer than she would have expected if it was related to eating something bad. She came to the emergency room where she had a CT scan of the abdomen as well as abdominal ultrasound performed. The CT scan of the abdomen showed evidence of diverticulosis but no diverticulitis and otherwise unremarkable. The abdominal ultrasound was also unremarkable. She had a chemistry panel which was normal as well as a lipase which was within the normal level and a troponin was also drawn which was normal. She was placed in observation and did very well overnight. The following day the abdominal pain completely resolved. She was eating solid food without difficulty. She will be placed on a proton pump inhibitor and has been instructed to follow-up with her primary care physician and consider outpatient gastroenterology evaluation. Procedures: CT abdomen Resuscitation Status: 05/31/20 13:56 Resuscitation Status Routine Resuscitation Status: FULL: Full Resuscitation - Labs Lab Results: 06/01/20 05:31 06/01/20 05:31 Abnormal Lab Results - Last 48 hrs 05/31/20 12:19: RBC 4.11 L, MPV 7.3 L, Neutrophils % 82.5 H, Lymphocytes % 14.2 L, Neutrophils # 7.2 H 06/01/20 05:31: BUN 23 H 06/01/20 05:31: RBC 3.74 L, Hgb 11.2 L, Hct 33.7 L, MPV 7.0 L, Monocytes # 0.6 H - Physical Exam Vitals: Vital Signs (12 hours) Temp Pulse Resp BP BP Pulse Ox 06/01/20 11:40 98.1 F 71 18 95/58 L 96 06/01/20 09:07 116/64 06/01/20 09:06 116/64 06/01/20 08:03 98.1 F 77 20 116/64 96 Weight Weight 156 lb Physical Exam: The patient was seen and examined on the day of discharge. Problem - Problem (1) Abdominal pain Code(s): R10.9 - UNSPECIFIED ABDOMINAL PAIN Status: Acute (2) Congestive heart failure Code(s): I50.9 - HEART FAILURE, UNSPECIFIED Status: Acute Qualifiers: Heart failure type: diastolic Heart failure chronicity: chronic Qualified Code(s): I50.32 - Chronic diastolic (congestive) heart failure (3) HTN (hypertension) Code(s): I10 - ESSENTIAL (PRIMARY) HYPERTENSION Status: Chronic Qualifiers: Hypertension type: essential hypertension Qualified Code(s): I10 - Essential (primary) hypertension Plan - Discharge Medications Prescriptions: Pantoprazole [Protonix] 40 mg PO DAILY #30 tab Home Medications: Medication Instructions Recorded Confirmed Type Lisinopril 10 mg PO DAILY 09/01/17 05/31/20 History Aspirin Chewable [Aspirin Chewable 81 mg PO DAILY #30 tab 09/06/17 05/31/20 Rx Tablet] Furosemide [Lasix] 40 mg PO DAILY-AC #30 tab 09/06/17 05/31/20 Rx Carvedilol 6.25 mg PO BID-WM 02/01/18 05/31/20 History Nitroglycerin [Nitrostat] 0.4 mg SL Q5MIN PRN #60 tab 02/02/18 05/31/20 Rx Atorvastatin Calcium 40 mg PO DAILY 05/31/20 05/31/20 History Spironolactone 25 mg PO DAILY 05/31/20 05/31/20 History Pantoprazole [Protonix] 40 mg PO DAILY #30 tab 06/01/20 Rx Allergies: Penicillins Allergy (Verified 08/06/19 04:22) Rash - Discharge Instructions Discharge Instructions:: ACTIVITY TOLERATED. HEART HEALTHY LOW SODIUM DIET. Follow-up with Dr. Courtney in 2 weeks Activity:: Activity as Tolerated Nourishment:: Heart Healthy Diet - Follow up Plan Referrals: Isaac Courtney MD [Primary Care Provider] - ( NEEDED) Disposition: HOME Quality - Care Measures CORE MEASURES:: N/A
--- NOTE | 2020-06-21 22:48 | EKG ---
Test Reason : Blood Pressure : / mmHG Vent. Rate : 080 BPM Atrial Rate : 080 BPM P-R Int : 196 ms QRS Dur : 088 ms QT Int : 412 ms P-R-T Axes : 065 029 051 degrees QTc Int : 475 ms Normal sinus rhythm Normal ECG Confirmed by LAURIE LINDSEY, BENTLEY ([id number]), research editor JEANNIE FRY ([id number]) on 06/21/2020 10:47:50 PM Referred By: Confirmed By:BENTLEY SULLIVAN MD
== END 2020-06-01 13:26 | disposition home or self-care (01) ==
LOC: ERS 08:45 → SJJU 10:22
PROVIDERS: ADMIT Internal Medicine; ATTEND Internal Medicine
DX: R10.13 Epigastric pain (principal); I11.0 Hypertensive heart disease with heart failure; I50.33 Acute on chronic diastolic (congestive) heart failure; E78.5 Hyperlipidemia, unspecified; G56.03 Carpal tunnel syndrome, bilateral upper limbs; K76.89 Other specified diseases of liver; Z79.82 Long term (current) use of aspirin; Z79.899 Other long term (current) drug therapy; Z88.0 Allergy status to penicillin; Z20.822 Contact with and (suspected) exposure to COVID-19
CPT/HCPCS: 76705; 80048; 80053; 83690; 84484; 85025 ×2; 93005; 96365; 96375; 99285; G0378 ×3; U0003; U0005; 36415; 87635; C9113; J2550

== ENCOUNTER 2024-03-20 09:33 | Outpatient (CLI) | payer MEDICARE | END 2024-03-20 09:34 | disposition home or self-care (01) | LOC: ULT 09:33 | PROVIDERS: ATTEND Family Medicine | DX: R10.84 Generalized abdominal pain (principal); R19.00 Intra-abdominal and pelvic swelling, mass and lump, unspecified site | CPT/HCPCS: 76700 ==

== ENCOUNTER 2024-04-18 13:06 | Outpatient (CLI) | payer MEDICARE | END 2024-04-18 13:07 | disposition home or self-care (01) | LOC: MRI 13:06 | PROVIDERS: ATTEND Family Medicine | DX: M79.89 Other specified soft tissue disorders (principal); R19.00 Intra-abdominal and pelvic swelling, mass and lump, unspecified site | CPT/HCPCS: 74183 ==

== ENCOUNTER 2024-04-30 06:04 | Day surgery (SDC) | payer MEDICARE ==
[2024-04-27 14:23] VITALS: BMI 24.7
[2024-04-30] MEDS ORDERED: PROPOFOL 40 ML ONE (08:09)
[2024-04-30] MEDS ORDERED: Lidocaine 2% PF 5 ML VIAL ONE (08:22)
[2024-04-30] MEDS ORDERED: ePHEDrine Sulfate 50 MG/10 ML VIAL ONE (08:22)
[2024-04-30] MEDS ORDERED: PHENYLEPHRINE-NS 100 MCG/ML 10 ML SYRINGE ONE (08:39)
== END 2024-04-30 09:52 | disposition home or self-care (01) ==
LOC: SDC 06:04
PROVIDERS: ATTEND Internal Medicine
PROC: 0DBK8ZX Excision of Ascending Colon, Via Natural or Artificial Opening Endoscopic, Diagnostic (ICD-10-PCS; principal; 2024-04-30)
PROC: 3E0H8KZ Introduction of Other Diagnostic Substance into Lower GI, Via Natural or Artificial Opening Endoscopic (ICD-10-PCS; 2024-04-30)
DX: C18.2 Malignant neoplasm of ascending colon (principal); K64.4 Residual hemorrhoidal skin tags; K57.30 Diverticulosis of large intestine without perforation or abscess without bleeding; I10 Essential (primary) hypertension; E78.5 Hyperlipidemia, unspecified; G43.909 Migraine, unspecified, not intractable, without status migrainosus; E78.00 Pure hypercholesterolemia, unspecified; Z98.51 Tubal ligation status; Z79.82 Long term (current) use of aspirin; Z79.899 Other long term (current) drug therapy; Z88.0 Allergy status to penicillin; Z88.6 Allergy status to analgesic agent; Z88.8 Allergy status to other drugs, medicaments and biological substances
CPT/HCPCS: 45380; 45381; J2704; 88305

== ENCOUNTER 2024-05-23 08:19 | Outpatient (CLI) | payer MEDICARE, OTHER ==
[2024-05-23] MEDS ORDERED: Iopamidol 370 76% 100 ML VIAL ONE (15:43)
== END 2024-05-23 08:20 | disposition home or self-care (01) ==
LOC: CT 08:19
PROVIDERS: ATTEND Internal Medicine
DX: C18.2 Malignant neoplasm of ascending colon (principal); R59.0 Localized enlarged lymph nodes; R91.1 Solitary pulmonary nodule; J18.1 Lobar pneumonia, unspecified organism; E04.1 Nontoxic single thyroid nodule; N63.20 Unspecified lump in the left breast, unspecified quadrant; K76.89 Other specified diseases of liver; N28.89 Other specified disorders of kidney and ureter; K57.30 Diverticulosis of large intestine without perforation or abscess without bleeding; M47.819 Spondylosis without myelopathy or radiculopathy, site unspecified
CPT/HCPCS: 71260; 74177; Q9967

== ENCOUNTER 2024-05-24 14:49 | Outpatient (CLI) | payer MEDICARE | END 2024-05-24 14:50 | disposition home or self-care (01) | LOC: LABBT 14:49 | PROVIDERS: ATTEND Surgery | DX: Z01.810 Encounter for preprocedural cardiovascular examination (principal); C18.0 Malignant neoplasm of cecum | CPT/HCPCS: 93005; 93010 ==

== ENCOUNTER 2024-05-24 16:00 | Inpatient (IN) | payer MEDICARE ==
[2024-05-24 15:27] VITALS: BMI 23.6
[2024-05-24 16:10] LABS: #Basophils 0.08 10x3/uL (0.0-0.2); %Basophils 0.7 % (0.0-1.0); %Eosinophils 3.1 % (0.0-10.0); %Lymphocytes 19.9 % (21.0-51.0); %Neutrophils 69.5 % (42.0-75.0); Hematocrit 32.9 % (36.0-47.0); Hemoglobin 10.1 g/dL (12.0-16.0); Mean Corpuscular HGB CONC 30.7 g/dL (32.0-36.0); Mean Corpuscular Hemoglobin 25.4 pg (27.0-31.0); Mean Corpuscular Volume 82.7 fL (78.0-98.0); Mean Platelet Volume 8.8 fL (7.4-10.4); Platelet Count 499 10x3/uL (130-400); RBC Distribution Width 16.3 % (11.5-14.5); Red Blood Cell (RBC) Count 3.98 mill/uL (4.20-5.40)
[2024-05-24 16:40] LABS: Albumin 2.7 g/dL (3.4-4.8); Calcium 9.1 mg/dL (7.8-10.44); Chloride 105 mmol/L (98-107); Glucose 104 mg/dL (83-110); Potassium 3.8 mmol/L (3.5-5.1); Sodium 136 mmol/L (136-145)
[2024-05-24 16:41] LABS: Globulin 3.7 g/dL (2.4-3.5); Protein, Total 6.4 g/dL (5.8-8.1)
[2024-05-24 16:42] LABS: Anion Gap 12 mmol/L (10-20); Carbon Dioxide 23 mmol/L (23-31)
[2024-05-24 16:43] LABS: Alkaline Phosphatase 128 U/L (40-110); Bilirubin, Total 0.5 mg/dL (0.2-1.2)
[2024-05-24 16:44] LABS: BUN (Urea Nitrogen) 10 mg/dL (9.8-20.1)
[2024-05-24 16:46] LABS: ALT (SGPT) 9 U/L (8-55); AST (SGOT) 15 U/L (5-34)
[2024-05-24 16:59] LABS: Calc. Creatinine Clearance 35 mL/min (70-130); Estimated GFR 47
[2024-05-25] MEDS ORDERED: Phenylephrine 40 MG/NS 250 ML 250 ML ONE (10:49)
[2024-05-25] MEDS ORDERED: Dexmedetomidine 200 MCG/2 ML VIAL ONE (10:49)
[2024-05-25] MEDS ORDERED: Rocuronium Bromide 10 MG/ML (10ML VIAL) ONE (10:49)
[2024-05-25] MEDS ORDERED: PROPOFOL 40 ML ONE (10:49)
[2024-05-25] MEDS ORDERED: Lidocaine 1% PF 5 ML VIAL ONE (10:49)
[2024-05-25] MEDS ORDERED: Dexamethasone 4 mg/ml Vial ONE (10:49)
[2024-05-25] MEDS ORDERED: SUGAMMADEX SODIUM 200 MG/2 ML VIAL ONE (10:49)
[2024-05-25] MEDS ORDERED: Ondansetron PF 4 MG/2 ML Vial ONE ×2 (10:49→13:45)
[2024-05-25] MEDS ORDERED: fentaNYL PF 100 MCG/2 ML SYRINGE ONE (10:49)
[2024-05-25] MEDS ORDERED: Acetaminophen 325 MG TAB ONE (11:02)
[2024-05-25] MEDS ORDERED: Heparin 5,000 UNITS/ML VIAL ONE (11:06)
[2024-05-25] MEDS ORDERED: Bupivacaine 0.25% HCL 30 ML VIAL ONE (11:42)
[2024-05-25] MEDS ORDERED: CEFAZOLIN 2 GM VIAL ONE (11:57)
[2024-05-25] MEDS ORDERED: metroNIDAZOLE 500 MG (100 mL) BAG ONE (11:57)
[2024-05-25] MEDS ORDERED: ePHEDrine Sulfate 50 MG/10 ML VIAL ONE (12:31)
[2024-05-25] MEDS ORDERED: Ipratropium/Albuterol 3 ML NEB NEB PRN (13:12)
[2024-05-25] MEDS ORDERED: hydrALAZINE 20 MG/ML VIAL SLOW IVP PRN (13:12)
[2024-05-25] MEDS ORDERED: Esmolol 100 MG/10 ML VIAL ONE (13:20)
[2024-05-25] MEDS ORDERED: PHENYLEPHRINE-NS 100 MCG/ML 10 ML SYRINGE ONE (13:20)
[2024-05-25] MEDS ORDERED: Promethazine HCl 25 MG/ML VIAL ONE (13:26)
[2024-05-25] MEDS ORDERED: fentaNYL 50 mcg/mL 1 mL Vial ONE ×3 (13:26→14:31)
[2024-05-25] MEDS ORDERED: hydrALAZINE 20 MG/ML VIAL ONE (14:24)
[2024-05-25] MEDS: traMADol HCl 50 MG TAB PO PRN (16:23)
[2024-05-25] MEDS: Carvedilol 6.25 MG TAB PO SCH (16:23)
[2024-05-25] MEDS: Promethazine HCl 25 MG/ML VIAL IM PRN (16:40)
[2024-05-25] MEDS: Morphine 2 MG/ML VIAL SLOW IVP PRN (18:33)
[2024-05-25] MEDS: Acetaminophen 325 MG TAB ONE (21:17)
[2024-05-26 05:47] LABS: #Basophils Less than 0.03 10x3/uL (0.0-0.2); #Eosinophils Less than 0.03 10x3/uL (0.0-0.7); %Basophils 0.1 % (0.0-1.0); %Lymphocytes 6.5 % (21.0-51.0); %Monocytes 2.5 % (0.0-10.0); %Neutrophils 90.3 % (42.0-75.0); Hematocrit 28.4 % (36.0-47.0); Hemoglobin 8.5 g/dL (12.0-16.0); Mean Corpuscular HGB CONC 29.9 g/dL (32.0-36.0); Mean Corpuscular Hemoglobin 25.2 pg (27.0-31.0); Mean Corpuscular Volume 84.3 fL (78.0-98.0); Mean Platelet Volume 8.9 fL (7.4-10.4); Platelet Count 350 10x3/uL (130-400); RBC Distribution Width 16.8 % (11.5-14.5); Red Blood Cell (RBC) Count 3.37 mill/uL (4.20-5.40)
[2024-05-26 06:41] LABS: Anion Gap 13 mmol/L (10-20); BUN (Urea Nitrogen) 11 mg/dL (9.8-20.1); Calc. Creatinine Clearance 44 mL/min (70-130); Calcium 8.6 mg/dL (7.8-10.44); Carbon Dioxide 19 mmol/L (23-31); Chloride 106 mmol/L (98-107); Estimated GFR 61; Glucose 207 mg/dL (83-110); Potassium 3.8 mmol/L (3.5-5.1); Sodium 134 mmol/L (136-145)
[2024-05-26] MEDS: Enoxaparin 30 MG (0.3 mL) SYRINGE SC SCH (10:16)
[2024-05-26] MEDS: Furosemide 20 MG TAB PO SCH (10:17)
[2024-05-26] MEDS: Atorvastatin Calcium 40 MG TAB PO SCH (10:17)
[2024-05-26] MEDS ORDERED: Acetaminophen 650 MG Suppository PR PRN (13:13)
[2024-05-26] MEDS: traMADol HCl 50 MG TAB PO PRN (15:09)
[2024-05-27 04:28] LABS: Hematocrit 27.6 % (36.0-47.0); Hemoglobin 8.2 g/dL (12.0-16.0); Mean Corpuscular HGB CONC 29.7 g/dL (32.0-36.0); Mean Corpuscular Hemoglobin 25.2 pg (27.0-31.0); Mean Corpuscular Volume 84.7 fL (78.0-98.0); Mean Platelet Volume 9.1 fL (7.4-10.4); Platelet Count 370 10x3/uL (130-400); Red Blood Cell (RBC) Count 3.26 mill/uL (4.20-5.40)
[2024-05-27 05:04] LABS: Anion Gap 11 mmol/L (10-20); BUN (Urea Nitrogen) 11 mg/dL (9.8-20.1); Calc. Creatinine Clearance 42 mL/min (70-130); Calcium 8.8 mg/dL (7.8-10.44); Carbon Dioxide 25 mmol/L (23-31); Chloride 106 mmol/L (98-107); Estimated GFR 59; Glucose 117 mg/dL (83-110); Sodium 138 mmol/L (136-145)
[2024-05-27] MEDS: Famotidine/PF 20 mg/2ml Vial SLOW IVP SCH (08:16)
[2024-05-27] MEDS: Enoxaparin 40 MG (0.4 mL) SYRINGE SC SCH (08:20)
[2024-05-27] MEDS: Ondansetron PF 4 MG/2 ML Vial IVP PRN (08:24)
[2024-05-27] MEDS: Calcium Carbonate 500 MG ChewTAB PO PRN (15:29)
[2024-05-27] MEDS: FLU (Fluad Triv) TS24-25 (65UP)/MF59C/PF 45 MCG/0.5 ML Syringe IM ONE (15:33)
[2024-05-28] MEDS: D5 1/2 NS w/20 mEq KCL 1,000 ML IV SCH (09:19)
[2024-05-29 05:19] LABS: Hematocrit 28.8 % (36.0-47.0); Hemoglobin 8.8 g/dL (12.0-16.0); Mean Corpuscular HGB CONC 30.6 g/dL (32.0-36.0); Mean Corpuscular Hemoglobin 25.7 pg (27.0-31.0); Mean Platelet Volume 8.9 fL (7.4-10.4); Platelet Count 350 10x3/uL (130-400); RBC Distribution Width 16.5 % (11.5-14.5); Red Blood Cell (RBC) Count 3.43 mill/uL (4.20-5.40)
[2024-05-29 05:47] LABS: Anion Gap 9 mmol/L (10-20); BUN (Urea Nitrogen) 9 mg/dL (9.8-20.1); Calc. Creatinine Clearance 49 mL/min (70-130); Calcium 8.1 mg/dL (7.8-10.44); Carbon Dioxide 25 mmol/L (23-31); Chloride 104 mmol/L (98-107); Estimated GFR 70; Glucose 109 mg/dL (83-110); Potassium 3.7 mmol/L (3.5-5.1); Sodium 134 mmol/L (136-145)
[2024-05-29] MEDS: D5 1/2 NS w/20 mEq KCL 1,000 ML IV SCH (06:14)
[2024-05-29] MEDS ORDERED: Bisacodyl 10 MG SUPP PR PRN (12:57)
[2024-05-30] MEDS: D5 1/2 NS w/20 mEq KCL 1,000 ML IV SCH (13:46)
[2024-05-30] MEDS: Acetaminophen 325 MG TAB PO PRN (20:09)
[2024-05-31 05:33] LABS: #Basophils 0.04 10x3/uL (0.0-0.2); %Basophils 0.4 % (0.0-1.0); %Eosinophils 3.2 % (0.0-10.0); %Lymphocytes 18.3 % (21.0-51.0); %Monocytes 8.8 % (0.0-10.0); %Neutrophils 67.7 % (42.0-75.0); Hematocrit 28.2 % (36.0-47.0); Hemoglobin 8.7 g/dL (12.0-16.0); Mean Corpuscular HGB CONC 30.9 g/dL (32.0-36.0); Mean Corpuscular Hemoglobin 25.7 pg (27.0-31.0); Mean Corpuscular Volume 83.2 fL (78.0-98.0); Mean Platelet Volume 9.6 fL (7.4-10.4); Platelet Count 311 10x3/uL (130-400); RBC Distribution Width 16.7 % (11.5-14.5); Red Blood Cell (RBC) Count 3.39 mill/uL (4.20-5.40)
[2024-05-31 05:41] LABS: ALT (SGPT) 8 U/L (8-55); AST (SGOT) 12 U/L (5-34); Albumin 1.9 g/dL (3.4-4.8); Alkaline Phosphatase 86 U/L (40-110); Anion Gap 10 mmol/L (10-20); BUN (Urea Nitrogen) 7 mg/dL (9.8-20.1); Bilirubin, Total 0.9 mg/dL (0.2-1.2); Calc. Creatinine Clearance 46 mL/min (70-130); Calcium 8.4 mg/dL (7.8-10.44); Carbon Dioxide 27 mmol/L (23-31); Chloride 104 mmol/L (98-107); Estimated GFR 64; Globulin 3.3 g/dL (2.4-3.5); Glucose 122 mg/dL (83-110); Magnesium 1.7 mg/dL (1.6-2.6); Phosphorus 3.5 mg/dL (2.3-4.7); Potassium 5.2 mmol/L (3.5-5.1); Protein, Total 5.2 g/dL (5.8-8.1); Sodium 136 mmol/L (136-145)
[2024-05-31] MEDS: Milk Of Magnesia 30 ML UDCUP PO SCH (06:16)
[2024-06-01] MEDS ORDERED: Zolpidem Tartrate 5 MG TAB PO PRN (02:48)
[2024-06-01 05:38] LABS: Anion Gap 9 mmol/L (10-20); BUN (Urea Nitrogen) 9 mg/dL (9.8-20.1); Calc. Creatinine Clearance 46 mL/min (70-130); Calcium 8.6 mg/dL (7.8-10.44); Carbon Dioxide 28 mmol/L (23-31); Chloride 100 mmol/L (98-107); Estimated GFR 65; Glucose 101 mg/dL (83-110); Potassium 3.9 mmol/L (3.5-5.1); Sodium 133 mmol/L (136-145)
[2024-06-01] MEDS: Polyethylene Glycol 3350 17 GM Packet PO SCH (08:40)
[2024-06-01 10:54] VITALS: BMI 23.6
[2024-06-01 15:53] VITALS: BP 121/61; TEMP 98
== END 2024-06-01 16:58 | disposition home or self-care (01) | DRG 330 ==
LOC: SURG A 05-25 09:45
PROVIDERS: ADMIT Surgery; ATTEND Surgery
PROC: 0DTF0ZZ Resection of Right Large Intestine, Open Approach (ICD-10-PCS; principal; 2024-05-25)
DX: C18.0 Malignant neoplasm of cecum (principal); K56.7 Ileus, unspecified; K91.89 Other postprocedural complications and disorders of digestive system
CPT/HCPCS: 36415; 36416; 74018; 80048; 80053; 82378; 83735; 84100; 85025; 85027; 86850; 86900; 86901; 88309; 88341; 88342; 93005; 93010; A4314; A4333; J0360; J0665; J1100; J1644; J1650; J2272; J2405; J2550; J2704; J3010; J3480; J3490; J7042

== ENCOUNTER 2024-12-20 13:11 | Outpatient (CLI) | payer MEDICARE ==
[2024-12-20 14:39] LABS: #Basophils 0.06 10x3/uL (0.0-0.2); #Eosinophils 0.26 10x3/uL (0.0-0.7); #Monocytes 0.46 10x3/uL (0.11-0.59); #Neutrophils 4.26 10x3/uL (1.40-6.50); %Basophils 0.8 % (0.0-1.0); %Eosinophils 3.6 % (0.0-10.0); %Lymphocytes 30.0 % (21.0-51.0); %Monocytes 6.4 % (0.0-10.0); %Neutrophils 58.8 % (42.0-75.0); Hematocrit 40.7 % (36.0-47.0); Hemoglobin 13.0 g/dL (12.0-16.0); Mean Corpuscular Hemoglobin 28.8 pg (27.0-31.0); Mean Corpuscular Volume 90.2 fL (78.0-98.0); Platelet Count 348 10x3/uL (130-400); Red Blood Cell (RBC) Count 4.51 mill/uL (4.20-5.40); White Blood Cell (WBC) Count 7.24 10x3/uL (4.8-10.8)
[2024-12-20 14:59] LABS: Anion Gap 14 mmol/L (10-20); BUN (Urea Nitrogen) 18 mg/dL (9.8-20.1); Calc. Creatinine Clearance 0 mL/min (70-130); Calcium 9.6 mg/dL (7.8-10.44); Carbon Dioxide 25 mmol/L (23-31); Chloride 103 mmol/L (98-107); Glucose 111 mg/dL (83-110); Potassium 4.4 mmol/L (3.5-5.1); Sodium 138 mmol/L (136-145)
== END 2024-12-20 13:12 | disposition home or self-care (01) ==
LOC: LABBT 13:11
PROVIDERS: ATTEND Orthopaedic Surgery
DX: Z01.818 Encounter for other preprocedural examination (principal); G56.03 Carpal tunnel syndrome, bilateral upper limbs; G56.23 Lesion of ulnar nerve, bilateral upper limbs
CPT/HCPCS: 71046; 80048; 85025; 93005; 93010

== ENCOUNTER 2024-12-24 05:41 | Day surgery (SDC) | payer MEDICARE ==
[2024-12-20 13:33] VITALS: BMI 21.1
[2024-12-24] MEDS ORDERED: fentaNYL PF 100 MCG/2 ML SYRINGE ONE (07:13)
[2024-12-24] MEDS ORDERED: Ondansetron PF 4 MG/2 ML Vial ONE (07:13)
[2024-12-24] MEDS ORDERED: PROPOFOL 20 ML ONE (07:13)
[2024-12-24] MEDS ORDERED: Lidocaine 1% PF 5 ML VIAL ONE (07:13)
[2024-12-24] MEDS ORDERED: Rocuronium Bromide 10 MG/ML (10ML VIAL) ONE (07:19)
[2024-12-24] MEDS ORDERED: PHENYLEPHRINE-NS 100 MCG/ML 10 ML SYRINGE ONE (07:19)
== END 2024-12-24 10:02 | disposition home or self-care (01) ==
LOC: SDC 05:41
PROVIDERS: ATTEND Orthopaedic Surgery
PROC: 0LN70ZZ Release Right Hand Tendon, Open Approach (ICD-10-PCS; principal; 2024-12-24)
PROC: 01N50ZZ Release Median Nerve, Open Approach (ICD-10-PCS; 2024-12-24)
PROC: 01N40ZZ Release Ulnar Nerve, Open Approach (ICD-10-PCS; 2024-12-24)
DX: M65.311 Trigger thumb, right thumb (principal); G56.03 Carpal tunnel syndrome, bilateral upper limbs; G56.23 Lesion of ulnar nerve, bilateral upper limbs; E78.5 Hyperlipidemia, unspecified; I11.0 Hypertensive heart disease with heart failure; I50.9 Heart failure, unspecified; Z88.0 Allergy status to penicillin
CPT/HCPCS: 26055; 64718; 64721; J0665; J0702; J1100; J2405; J2550; J2704; J3490